=== PATIENT | female | born 2000 | race Caucasian/White ===

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

== ENCOUNTER 2020-12-04 14:33 | Inpatient (IN) ==
[2020-12-04 15:09] LABS: ABG BASE EXCESS 0.8 mmol/L (-2.0-2.0); ABG HCO3 24.2 mmol/L (22-26)
[2020-12-04 15:10] LABS: ABG ALLEN TEST POS
--- NOTE | 2020-12-04 15:48 | DR.SOBA ---
HPI Time Seen Time Seen by Provider: 12/04/20 15:39 Primary Care Physician Primary Care Physician: PAIGE CASANOVA HPI Comment HPI Comment: A 20 y/o female presenting c/o SOB, and hurting in her chest to breath. These have been on going x 1 week. There was associated cough with minimal phlegm production. She was in the ED at [facility] for same 2 days ago where she tested positive for COVID. She was discharged home on Albuterol and Doxycycline. Complaints Chief Complaint:: PT. TESTED POSITIVE FOR COVID 12/02 AND WAS GIVEN A RX. FOR ALBUTEROL AND DOXYCYCLINE. SHE HAS BEEN RUNNING FEVER AND HAS A COUGH BUT COMES IN TODAY C/O SOB AND CHEST HURTING COVID-19 Coronavirus risk:travel/contact w/high risk person: Yes Has patient experienced Coronavirus symptoms: Yes Coronavirus symptoms experienced: Fever, Coughing and Shortness of Breath Reviewed Nurses Notes Reviewed: Yes Source History Provided: Patient Mode of Arrival Mode of Arrival: Ambulatory Timing Onset of Chief Complaint: 12/02/20 Context Onset:: At Rest PE Risk Factors:: None History of:: None Currently on:: Neither Prehospital Care:: None Modifying Factors Worsens:: Exertion Improves:: Rest Associated Signs and Symptoms Associated Signs and Symptoms: Fever and Cough PMH PMH Past Medical History: Yes Past Medical History: Hypertension Past Surgical History: Yes Surgical History: Tonsillectomy Family History History of Family Medical Conditions: Yes Family Medical History: Hypertension Social History Does patient currently use any type of tobacco product: No Have you used tobacco products in the last 12 months: No Type of Tobacco Use: None Does any household member use tobacco: No Alcohol Use: Occasionally Do you use any recreational Drugs:: No Lives With: Friend Lives Where: Home Travel Risk Coronavirus risk:travel/contact w/high risk person: Yes Has patient experienced Coronavirus symptoms: Yes Coronavirus symptoms experienced: Fever, Coughing and Shortness of Breath Infectious screening In the last 2 months have you had wt loss of >10#?: NO Have you had fever, night sweats or hemotysis?: No Have you traveled outside the country in the last 6 months?: No Isolation: Airborn/Negative Pressure ROS Review of Systems Constitutional: No Symptoms Reported Eyes: No Symptoms Reported ENTM: No Symptoms Reported Respiratoy: Productive Cough, Non-Productive Cough, Short of Breath and Other (pleuritic chest pain) Cardiovascular: No Symptoms Reported Gastrointestinal/Abdominal: No Symptoms Reported Genitourinary: No Symptoms Reported Neurological: No Symptoms Reported Musculoskeletal: No Symptoms Reported Integumentary: No Symptoms Reported Hematologic/Lymphatic: No Symptoms Reported Endocrine: No Symptoms Reported Psychiatric: No Symptoms Reported PE Vital Signs Vitals: Temperature 97.7 F Pulse Rate 113 Respiratory Rate 32 Blood Pressure 137/84 O2 Sat by Pulse Oximetry 79 General Limitations: No Limitations General Appearance: Alert, In No Apparent Distress and Obese Head Head Exam: Normal Inspection, Atraumatic and Normocephalic Eyes Eye exam: Normal Appearance and EOMI ENT ENT Exam: Normal Exam, Normal Oropharynx, Normal External Ear Exam and Mucous Membranes Moist Neck Neck Exam: Normal Inspection, Full ROM and Trachea Midline Chest Chest Inspection: Normal Inspection and Symmetric Chest Wall Rise Respiratory Respiratory Exam: Normal Lung Sounds Bilat Cardiovascular Cardiovascular Exam: Regular Rate, Normal Rhythm, Normal Heart Sounds, +S1 and +S2 Abdominal Exam Abdominal Exam: Normal Inspection, Normal Bowel Sounds and Soft Extremities Extremities Exam: Normal Inspection and Full ROM Back Back Exam: Normal Inspection and Full ROM Neurologic Neurological Exam: Alert and Oriented X3 Psychiatric Psychiatric Exam: Normal Affect and Normal Mood Skin Skin Exam: Intact and Normal Color COURSE Reevaluation 1st: Improved Education/Counseling Education/Counseling: Patient, Education and Counseling Educated On: Treatment, Diagnosis, Prognosis and Needs for Follow Up ROR Labs Reviewed Laboratory Results Reviewed?: Yes Result Diagrams: 12/10/20 04:52 12/10/20 04:52 Laboratory: WBC 3.1 X10^3/uL (3.6-10.0) L 12/04/20 16:15 RBC 5.09 X10^6/uL (3.5-5.4) 12/04/20 16:15 Hgb 11.5 g/dL (12.0-16.0) L 12/04/20 16:15 Hct 35.3 % (36.0-47.0) L 12/04/20 16:15 MCV 69.3 fL (80.0-100.0) L 12/04/20 16:15 MCH 22.6 pg (27.0-34.0) L 12/04/20 16:15 MCHC 32.6 g/dL (33.0-35.0) L 12/04/20 16:15 RDW 17.7 % (11.6-16.5) H 12/04/20 16:15 Plt Count 131 X10^3/uL (150.0-450.0) L 12/04/20 16:15 Plt Count Comment Decreased (ADEQUATE) A 12/04/20 16:15 MPV 9.6 fL (7.4-11.0) 12/04/20 16:15 Neut % (Auto) 74.6 % (42.0-75.0) 12/04/20 16:15 Lymph % (Auto) 20.3 % (21.0-51.0) L 12/04/20 16:15 [place] % (Auto) 4.7 % (0.0-13.0) 12/04/20 16:15 Eos % (Auto) 0.0 % (0.9-2.9) L 12/04/20 16:15 Baso % (Auto) 0.4 % (0.2-1.0) 12/04/20 16:15 Neut # (Auto) 2.3 x10^3/uL (2.2-4.8) 12/04/20 16:15 Lymph # (Auto) 0.6 X10^3/uL (1.3-2.9) L 12/04/20 16:15 [place] # (Auto) 0.1 x10^3/uL (0.3-0.8) L 12/04/20 16:15 Eos # (Auto) 0.0 x10^3/uL (0.0-0.2) 12/04/20 16:15 Baso # (Auto) 0.0 X10^3/uL (0.0-0.1) 12/04/20 16:15 Absolute Nucleated RBC 0.1 /100WBC 12/04/20 16:15 Plt Morphology Comment Normal (NORMAL) 12/04/20 16:15 RBC Morphology Abnormal (NORMAL) A 12/04/20 16:15 Microcytosis 1+ A 12/04/20 16:15 D-Dimer 0.68 ug/ml (0.0-0.57) H* 12/04/20 16:15 Sample Site Lr 12/04/20 15:00 ABG pH 7.460 (7.35-7.45) H 12/04/20 15:00 ABG pCO2 34.0 mmHg (35.0-45.0) L 12/04/20 15:00 ABG pO2 54.0 mmHg (80.0-100.0) L 12/04/20 15:00 ABG HCO3 24.2 mmol/L (22-26) 12/04/20 15:00 ABG O2 Saturation 89.0 % (90-100) L 12/04/20 15:00 ABG Base Excess 0.8 mmol/L (-2.0-2.0) 12/04/20 15:00 Jim Test Pos 12/04/20 15:00 A-a Gradient 103.0 mmHg 12/04/20 15:00 FiO2 28.0 12/04/20 15:00 Blood Gas Comments Pt gustavo well cdn 12/04/20 15:00 Sodium 140 mmol/L (136-145) 12/04/20 16:15 Corrected Sodium 142 mmol/L (136-145) 12/04/20 16:15 Potassium 3.4 mmol/L (3.5-5.1) L 12/04/20 16:15 Chloride 104 mmol/L (98-107) 12/04/20 16:15 Carbon Dioxide 26.5 mmol/L (21-32) 12/04/20 16:15 BUN 7 mg/dL (7-18) 12/04/20 16:15 Creatinine 0.70 mg/dL (0.55-1.02) 12/04/20 16:15 Est GFR (MDRD) Af Amer > 60 (>60) 12/04/20 16:15 Est GFR (MDRD) Non-Af > 60 (>60) 12/04/20 16:15 Glucose 168 mg/dL (65-99) H 12/04/20 16:15 Calcium 7.9 mg/dL (8.5-10.1) L 12/04/20 16:15 Corrected Calcium 8.6 mg/dL (8.5-10.1) 12/04/20 16:15 Ferritin 485 ng/mL (8-252) H 12/04/20 16:15 Total Bilirubin 0.50 mg/dL (0.2-1.0) 12/04/20 16:15 AST 118 Units/L (15-37) H 12/04/20 16:15 ALT 157 Units/L (12-78) H 12/04/20 16:15 Alkaline Phosphatase 81 Units/L (46-116) 12/04/20 16:15 C-Reactive Protein 31.10 mg/L (0-3.0) H 12/04/20 16:15 B-Natriuretic Peptide < 5.0 pg/mL (0-79) 12/04/20 16:15 Total Protein 7.1 g/dL (6.4-8.2) 12/04/20 16:15 Albumin 3.1 g/dL (3.4-5.0) L 12/04/20 16:15 Globulin 4.0 g/dL (2.5-4.5) 12/04/20 16:15 Albumin/Globulin Ratio 0.8 Ratio (1.1-2.1) L 12/04/20 16:15 Opioid Opioid Risk Tool Age (Hugo box if 16-45): No History of Preadolescent Sexual Abuse: No Total: 0 Total Score Risk Category: Low Risk Copyright: [facility] predicting aberrant behaviors Diagnosis Discharge Problem: Pneumonia due to 2019-nCoV Instructions Forms: Precautions for COVID19 Patient Portal Social Distancing ADDITIONAL NOTES Additional Notes Additional Notes: [facility] [id number]: [id number] : 2000Sex: FLocation: ER Order Number(s): [id number](s):CHEST, 1 VIEW Ordering Physician: PAULINA WAN Primary Care: Paige Casanova Service Date: 12/04/20 Service Time: 1536 EXAM: CHEST X-RAY HISTORY: COVID-19 positive. Shortness of breath. TECHNIQUE: AP chest x-ray dated December 04, 2020 at 3:42 PM. COMPARISON: None available. FINDINGS: There moderate diffuse bilateral lung infiltrates, especially in the middle and lower lung snider, in keeping with bronchitis and interstitial pneumonia (e.g. Covid pneumonia) in the appropriate clinical setting; DDX includes mild noncardiogenic pulmonary congestion in the appropriate clinical setting. Clinical correlation is advised. No focal lung consolidation/mass, pleural effusion, or pneumothorax is seen. The heart size and mediastinum are within normal limits. The visualized bony structures are within normal limits. IMPRESSION: 1. Moderate diffuse bilateral lung infiltrates, especially in the middle and lower lung snider, in keeping with bronchitis and interstitial pneumonia (e.g. Covid pneumonia) in the appropriate clinical setting; DDX includes mild noncardiogenic pulmonary congestion in the appropriate clinical setting. 2. Recommend clinical correlation and appropriate follow-up x-ray to ensure interval clearance. 3. Consider follow-up evaluation with noncontrast chest CT to confirm Covid pneumonia as clinically warranted. Electronically signed by: Se Fields (Dec 04, 2020 15:59:01) Report Electronically signed: 12/04/20 1600 CC: Paulina Wan
--- NOTE | 2020-12-04 16:00 | RAD ---
EXAM: CHEST X-RAYHISTORY: COVID-19 positive. Shortness of breath.TECHNIQUE: AP chest x-ray dated December 04, 2020 at 3:42 PM.COMPARISON: None available.FINDINGS:There moderate diffuse bilateral lung infiltrates, especially in the middle and lower lung snider, in keeping with bronchitis and interstitial pneumonia (e.g. Covid pneumonia) in the appropriate clinical setting; DDX includes mild noncardiogenic pulmonary congestion in the appropriate clinical setting. Clinical correlation is advised.No focal lung consolidation/mass, pleural effusion, or pneumothorax is seen.The heart size and mediastinum are within normal limits. The visualized bony structures are within normal limits.IMPRESSION:1. Moderate diffuse bilateral lung infiltrates, especially in the middle and lower lung snider, in keeping with bronchitis and interstitial pneumonia (e.g. Covid pneumonia) in the appropriate clinical setting; DDX includes mild noncardiogenic pulmonary congestion in the appropriate clinical setting.2. Recommend clinical correlation and appropriate follow-up x-ray to ensure interval clearance.3. Consider follow-up evaluation with noncontrast chest CT to confirm Covid pneumonia as clinically warranted.Electronically signed by: Se Fields (Dec 04, 2020 15:59:01)
[2020-12-04 16:48] LABS: BASOPHILS % (AUTO) 0.4 % (0.2-1.0); HEMATOCRIT 35.3 % (36.0-47.0); HEMOGLOBIN 11.5 g/dL (12.0-16.0); LYMPHOCYTES # (AUTO) 0.6 X10^3/uL (1.3-2.9); LYMPHOCYTES % (AUTO) 20.3 % (21.0-51.0); MEAN CORPUSCULAR HEMOGLOBIN 22.6 pg (27.0-34.0); MEAN CORPUSCULAR HGB CONC 32.6 g/dL (33.0-35.0); MEAN CORPUSCULAR VOLUME 69.3 fL (80.0-100.0); MEAN PLATELET VOLUME 9.6 fL (7.4-11.0); MONOCYTES # (AUTO) 0.1 x10^3/uL (0.3-0.8); MONOCYTES % (AUTO) 4.7 % (0.0-13.0); NEUTROPHILS # (AUTO) 2.3 x10^3/uL (2.2-4.8); NEUTROPHILS % (AUTO) 74.6 % (42.0-75.0); PLATELET COUNT 131 X10^3/uL (150.0-450.0); RED BLOOD COUNT 5.09 X10^6/uL (3.5-5.4); RED CELL DISTRIBUTION WIDTH 17.7 % (11.6-16.5); WHITE BLOOD COUNT 3.1 X10^3/uL (3.6-10.0)
[2020-12-04 16:59] LABS: ALANINE AMINOTRANSFERASE 157 Units/L (12-78); ALBUMIN 3.1 g/dL (3.4-5.0); ALKALINE PHOSPHATASE 81 Units/L (46-116); ASPARTATE AMINO TRANSFERASE 118 Units/L (15-37); BLOOD UREA NITROGEN 7 mg/dL (7-18); COR NA(FOR HYPERGLY) 142 mmol/L (136-145); SODIUM 140 mmol/L (136-145); TOTAL PROTEIN 7.1 g/dL (6.4-8.2); eGFR NON BLACK RACES > 60 (>60)
[2020-12-04 17:07] LABS: CALCIUM 7.9 mg/dL (8.5-10.1); CARBON DIOXIDE 26.5 mmol/L (21-32); COR CA(FOR HYPOALB) 8.6 mg/dL (8.5-10.1)
[2020-12-04 17:20] LABS: CHLORIDE 104 mmol/L (98-107)
[2020-12-04 17:42] LABS: MICROCYTOSIS 1+; PLATELET MORPHOLOGY COMMENT NORMAL (NORMAL)
[2020-12-04] MEDS ORDERED: SOLU-Medrol 125 MG VIAL IVP SCH (18:00)
[2020-12-04] MEDS ORDERED: TYLENOL 325 MG TAB PO ONE ×2 (18:00→20:23)
[2020-12-04] MEDS ORDERED: NS 100 ML IV 100 ML ONE (18:19)
--- NOTE | 2020-12-04 19:00 | CT ---
CT angiogram chest with contrastIndication: Dyspnea and fever. Cough.TECHNIQUEHelical images through the chest after IV contrast. Coronal and sagittal reformats provided. MIP images provided.COMPARISONChest radiograph from the same day.FINDINGSLimited images through the upper abdomen shows hepatic steatosis. Review of bone windows demonstrate no destructive osseous lesion.Chest: Aortic arch and branch vessels are patent. Heart size is prominent. Pulmonary artery bolus timing is suboptimal without large central pulmonary artery filling defect identified. Chest wall soft tissues show no unexpected abnormality. No mediastinal abnormality is identified.There is no pneumothorax or effusion. Bilateral ground-glass opacity and patchy airspace opacities are seen scattered throughout the lungs, probably worse in the lower lungs, and peripherally located.IMPRESSION1. No pulmonary embolus seen centrally with distal vessels less well evaluated due to motion2. Pulmonary opacities, compatible with moderate COVID-19 viral pneumonitis.3. Hepatic steatosis.Electronically signed by: AMELIA HENDERSON (Dec 04, 2020 18:58:32)
[2020-12-04] MEDS ORDERED: SOLU-Medrol 125 MG VIAL ONE (20:23)
[2020-12-04] MEDS ORDERED: NS 250 ML IV 250 ML IV ONE (20:24)
[2020-12-04] MEDS ORDERED: REMDESIVIR IV ONE (20:24)
[2020-12-04] MEDS: REMDESIVIR 200 MG in NS 100 ML IV 140 ML IV ONE (20:44)
[2020-12-04] MEDS ORDERED: NS 250 ML IV 250 ML IV SCH (21:00)
[2020-12-04] MEDS ORDERED: VISTARIL PO PRN (23:01)
[2020-12-05] MEDS: LOVENOX INJ 40 MG SYR SC SCH ×3 (00:04→21:57)
[2020-12-05] MEDS: NS 1000 ML 1,000 ML IV SCH ×2 (00:04→11:55)
[2020-12-05] MEDS: ROBITUSSIN DM PO SCH ×5 (00:05→21:57)
[2020-12-05] MEDS: ZITHROMAX INJ 500 MG VIAL 500 MG in NS 250 ML IV 250 ML IV SCH ×2 (00:05→23:20)
[2020-12-05 06:10] LABS: BASOPHILS % (AUTO) 0.3 % (0.2-1.0); EOSINOPHILS % (AUTO) 0.2 % (0.9-2.9); HEMATOCRIT 35.5 % (36.0-47.0); HEMOGLOBIN 11.6 g/dL (12.0-16.0); LYMPHOCYTES # (AUTO) 0.4 X10^3/uL (1.3-2.9); LYMPHOCYTES % (AUTO) 19.6 % (21.0-51.0); MEAN CORPUSCULAR HEMOGLOBIN 23.1 pg (27.0-34.0); MEAN CORPUSCULAR HGB CONC 32.6 g/dL (33.0-35.0); MEAN CORPUSCULAR VOLUME 70.9 fL (80.0-100.0); MEAN PLATELET VOLUME 9.9 fL (7.4-11.0); MONOCYTES # (AUTO) 0.1 x10^3/uL (0.3-0.8); MONOCYTES % (AUTO) 2.4 % (0.0-13.0); NEUTROPHILS # (AUTO) 1.6 x10^3/uL (2.2-4.8); NEUTROPHILS % (AUTO) 77.5 % (42.0-75.0); PLATELET COUNT 129 X10^3/uL (150.0-450.0); RED BLOOD COUNT 5.01 X10^6/uL (3.5-5.4); RED CELL DISTRIBUTION WIDTH 17.5 % (11.6-16.5); WHITE BLOOD COUNT 2.1 X10^3/uL (3.6-10.0)
[2020-12-05] MEDS: SOLU-Medrol 40 MG VIAL IVP SCH ×3 (06:27→18:40)
[2020-12-05 06:56] LABS: ALANINE AMINOTRANSFERASE 170 Units/L (12-78); ALBUMIN 2.9 g/dL (3.4-5.0); ALKALINE PHOSPHATASE 100 Units/L (46-116); ASPARTATE AMINO TRANSFERASE 138 Units/L (15-37); BLOOD UREA NITROGEN 8 mg/dL (7-18); CALCIUM 8.1 mg/dL (8.5-10.1); CARBON DIOXIDE 24.7 mmol/L (21-32); CHLORIDE 106 mmol/L (98-107); COR NA(FOR HYPERGLY) 146 mmol/L (136-145); CREATININE 0.88 mg/dL (0.55-1.02); SODIUM 140 mmol/L (136-145); TOTAL PROTEIN 7.2 g/dL (6.4-8.2); eGFR NON BLACK RACES > 60 (>60)
--- NOTE | 2020-12-05 06:57 | RAD ---
HISTORYCOVID-19STUDYPortable AP [id number]/2021FINDINGSThe heart is not significantly enlarged. Extensive bilateral airspace infiltrates are noted, similar in the right lung with interval progression on the left. No pleural fluid or pneumothorax is seen.IMPRESSIONPersistent bilateral pneumonia with significant progression in the left lung since 1 day prior.Electronically signed by: DURGA DICKERSON (Dec 05, 2020 06:55:40)
[2020-12-05 07:48] LABS: BAND NEUTROPHILS % 10 % (0-10); PLATELET MORPHOLOGY COMMENT NORMAL (NORMAL)
[2020-12-05] MEDS: PROTONIX INJ 40 MG VIAL IVP SCH (09:07)
[2020-12-05 10:22] LABS: ABG BASE EXCESS 1.2 mmol/L (-2.0-2.0)
[2020-12-05 10:23] LABS: ABG ALLEN TEST POS
[2020-12-05] MEDS: HumuLIN R SUBCUT PRN ×3 (12:30→21:57)
--- NOTE | 2020-12-05 18:21 | DR.H&P ---
H&P - History & Physical for Day of: H&P Date: 12/04/20 - Chief Complaint Chief Complaint: SOB, CCC - History of Present Illness History of Present Illness: A 20 y/o female presenting c/o SOB, and hurting in her chest to breath. These have been on going x 1 week. There was associated cough with minimal phlegm production. She was in the ED at [facility] for same 2 days ago where she tested positive for COVID. She was discharged home on Albuterol and Doxycycline. - Past Medical History Past Medical History: Hypertension - Past Surgical History Surgical History: [employer] Surgery, Tonsillectomy - Family History Family Medical History: Hypertension - Social History Does patient currently use any type of tobacco product: No Have you used tobacco products in the last 12 months: No Type of Tobacco Use: None Does any household member use tobacco: No Alcohol Use: Occasionally Drug Use: None - Medications Home Medications: No Known Drug Allergies Allergy (Verified 05/19/20 13:34) CONTINUE taking the following medications doxycycline hyclate [Doxy-Caps] 100 mg PO BID 12/04/20 [History] lisinopril 10 mg PO HS 12/04/20 [History] - Review of Systems Constitutional: Fever, Chills, Weakness, Malaise Eyes: No Symptoms Reported ENT: No Symptoms Reported Respiratory: Cough, Shortness of Breath, SOB with Excertion Cardiovascular: No Symptoms Reported Gastrointestinal: No Symptoms Reported Genitourinary: No Symptoms Reported Musculoskeletal: No Symptoms Reported Skin: No Symptoms Reported Neurological: No Symptoms Reported - Physical Exam Vital Signs: Temperature 98.4 F Pulse Rate [Right Brachial] 98 Pulse Rate 96 Respiratory Rate 37 Blood Pressure [Right Arm] 124/73 Blood Pressure 146/79 O2 Sat by Pulse Oximetry 85 Oriented: Normal Eyes: Normal Ear: Normal Nose: Normal Throat: Dry Respiratory: RML Diminished, RLL Diminished, LML Diminished, LLL Diminished Cardiovascular: Normal, Edema : Normal Auscultation: Bowel Sounds: Normal Palpation: Normal Tenderness: Normal Skin: Decreased [place]urgur Musculoskeletal: Normal Psychiatric: Normal Mood Description: Anxious Affect: Anxious Speech Pattern: Clear, Appropriate - Assessment/Plan (1) Pneumonia due to 2019-nCoV Status: Acute Plan: ADMIT, COVID 19 ISOLATION. IV HYDRATION, STRICT I&OS, IV ATBX. IV REMDESIVIR, LOVENOX, SOLU MEDROL. DUO NEBS, SUPPLEMENTAL O2. CTA ON ADMISSION, AM LABS, CARDIAC MONITORING (2) Hypertension Status: Acute - Allergies Allergies/Adverse Reactions: Allergies Allergy/AdvReac Type Severity Reaction Status Date / Time No Known Drug Allergies Allergy Verified 05/19/20 13:34
[2020-12-05] MEDS: VIBRAMYCIN 100 MG in D5W 250 ML IV 250 ML IV SCH ×2 (18:45→21:58)
[2020-12-05] MEDS: PULMICORT NEB TX 0.5 MG NEB SCH (20:55)
[2020-12-05] MEDS: BROVANA IN SCH (20:55)
[2020-12-05] MEDS: SNACK - Diabetic Appropriate PO SCH (21:56)
[2020-12-05] MEDS: REMDESIVIR 100 MG in NS 250 ML IV 250 ML IV SCH (21:56)
[2020-12-06] MEDS: SOLU-Medrol 40 MG VIAL IVP SCH ×4 (01:38→20:43)
[2020-12-06] MEDS: NS 1000 ML 1,000 ML IV SCH ×3 (01:39→21:23)
[2020-12-06 05:23] LABS: ABG ALLEN TEST POS; ABG HCO3 26.5 mmol/L (22-26)
[2020-12-06 05:34] LABS: BASOPHILS % (AUTO) 0.1 % (0.2-1.0); HEMATOCRIT 35.1 % (36.0-47.0); HEMOGLOBIN 11.4 g/dL (12.0-16.0); LYMPHOCYTES # (AUTO) 0.7 X10^3/uL (1.3-2.9); LYMPHOCYTES % (AUTO) 16.7 % (21.0-51.0); MEAN CORPUSCULAR HEMOGLOBIN 23.1 pg (27.0-34.0); MEAN CORPUSCULAR HGB CONC 32.6 g/dL (33.0-35.0); MEAN PLATELET VOLUME 9.1 fL (7.4-11.0); MONOCYTES # (AUTO) 0.2 x10^3/uL (0.3-0.8); MONOCYTES % (AUTO) 4.5 % (0.0-13.0); NEUTROPHILS # (AUTO) 3.2 x10^3/uL (2.2-4.8); NEUTROPHILS % (AUTO) 78.7 % (42.0-75.0); PLATELET COUNT 137 X10^3/uL (150.0-450.0); RED BLOOD COUNT 4.95 X10^6/uL (3.5-5.4); RED CELL DISTRIBUTION WIDTH 17.8 % (11.6-16.5)
[2020-12-06 05:56] LABS: ALANINE AMINOTRANSFERASE 123 Units/L (12-78); ALBUMIN 2.8 g/dL (3.4-5.0); ALKALINE PHOSPHATASE 84 Units/L (46-116); ASPARTATE AMINO TRANSFERASE 67 Units/L (15-37); BLOOD UREA NITROGEN 10 mg/dL (7-18); CALCIUM 8.2 mg/dL (8.5-10.1); CARBON DIOXIDE 25.8 mmol/L (21-32); CHLORIDE 105 mmol/L (98-107); COR CA(FOR HYPOALB) 9.2 mg/dL (8.5-10.1); COR NA(FOR HYPERGLY) 145 mmol/L (136-145); CREATININE 0.82 mg/dL (0.55-1.02); SODIUM 140 mmol/L (136-145); TOTAL PROTEIN 6.8 g/dL (6.4-8.2); eGFR NON BLACK RACES > 60 (>60)
[2020-12-06] MEDS: HumuLIN R SUBCUT PRN ×4 (06:15→20:45)
[2020-12-06 06:30] LABS: HYPOCHROMASIA SLIGHT; MICROCYTOSIS SLIGHT; PLATELET MORPHOLOGY COMMENT NORMAL (NORMAL)
--- NOTE | 2020-12-06 06:59 | RAD ---
HISTORYCOVID-19 pneumoniaSTUDYPortable AP [id number]/26/2021FINDINGSThere is no definite change in appearance of heart or lungs. Heart size remains upper normal with similar distribution of bilateral airspace pulmonary involvement. No developing pleural fluid or pneumothorax seen.IMPRESSIONSimilar appearance of bilateral pneumonia.Electronically signed by: DURGA DICKERSON (Dec 06, 2020 06:57:39)
[2020-12-06] MEDS: VIBRAMYCIN 100 MG in D5W 250 ML IV 250 ML IV SCH ×2 (08:45→21:48)
[2020-12-06] MEDS: LOVENOX INJ 40 MG SYR SC SCH ×2 (08:45→20:44)
[2020-12-06] MEDS: PROTONIX INJ 40 MG VIAL IVP SCH (08:45)
[2020-12-06] MEDS: ROBITUSSIN DM PO SCH ×4 (08:45→20:43)
[2020-12-06] MEDS: PULMICORT NEB TX 0.5 MG NEB SCH ×2 (09:23→21:22)
[2020-12-06] MEDS: BROVANA IN SCH ×2 (09:23→21:22)
[2020-12-06] MEDS ORDERED: TORADOL 15 MG VIAL ONE (16:46)
[2020-12-06] MEDS ORDERED: TYLENOL 325 MG TAB PO ONE ×2 (16:46→18:00)
[2020-12-06] MEDS: TORADOL 15 MG VIAL IVP ONE ×2 (16:50→18:00)
[2020-12-06] MEDS: NYSTATIN POWDER TOP SCH ×2 (18:20→20:44)
[2020-12-06] MEDS: GLUCOPHAGE XR 24-HR PO SCH ×2 (18:20→20:44)
[2020-12-06] MEDS: REMDESIVIR 100 MG in NS 250 ML IV 250 ML IV SCH (20:43)
[2020-12-06] MEDS: SNACK - Diabetic Appropriate PO SCH (21:23)
[2020-12-06] MEDS: ZESTRIL TAB 10 MG PO SCH (23:32)
[2020-12-07] MEDS: ZITHROMAX INJ 500 MG VIAL 500 MG in NS 250 ML IV 250 ML IV SCH ×2 (00:47→23:47)
[2020-12-07] MEDS: SOLU-Medrol 40 MG VIAL IVP SCH ×4 (01:57→21:41)
[2020-12-07] MEDS: NS 1000 ML 1,000 ML IV SCH ×3 (03:07→16:08)
[2020-12-07] MEDS: HumuLIN R SUBCUT PRN ×3 (05:21→21:42)
[2020-12-07 06:17] LABS: BASOPHILS % (AUTO) 0.1 % (0.2-1.0); HEMATOCRIT 34.4 % (36.0-47.0); HEMOGLOBIN 11.1 g/dL (12.0-16.0); LYMPHOCYTES # (AUTO) 0.9 X10^3/uL (1.3-2.9); LYMPHOCYTES % (AUTO) 12.2 % (21.0-51.0); MEAN CORPUSCULAR HEMOGLOBIN 23.5 pg (27.0-34.0); MEAN CORPUSCULAR HGB CONC 32.1 g/dL (33.0-35.0); MEAN PLATELET VOLUME 9.6 fL (7.4-11.0); MONOCYTES # (AUTO) 0.3 x10^3/uL (0.3-0.8); MONOCYTES % (AUTO) 4.1 % (0.0-13.0); NEUTROPHILS # (AUTO) 6.3 x10^3/uL (2.2-4.8); NEUTROPHILS % (AUTO) 83.6 % (42.0-75.0); PLATELET COUNT 164 X10^3/uL (150.0-450.0); RED BLOOD COUNT 4.72 X10^6/uL (3.5-5.4); WHITE BLOOD COUNT 7.6 X10^3/uL (3.6-10.0)
[2020-12-07 06:18] LABS: ALANINE AMINOTRANSFERASE 93 Units/L (12-78); ALBUMIN 2.6 g/dL (3.4-5.0); ALKALINE PHOSPHATASE 80 Units/L (46-116); ASPARTATE AMINO TRANSFERASE 41 Units/L (15-37); BLOOD UREA NITROGEN 16 mg/dL (7-18); CALCIUM 8.3 mg/dL (8.5-10.1); CARBON DIOXIDE 26.6 mmol/L (21-32); CHLORIDE 104 mmol/L (98-107); COR CA(FOR HYPOALB) 9.4 mg/dL (8.5-10.1); COR NA(FOR HYPERGLY) 147 mmol/L (136-145); CREATININE 0.87 mg/dL (0.55-1.02); SODIUM 141 mmol/L (136-145); TOTAL PROTEIN 6.4 g/dL (6.4-8.2); eGFR NON BLACK RACES > 60 (>60)
[2020-12-07 06:26] LABS: ABG HCO3 27.1 mmol/L (22-26)
[2020-12-07 06:27] LABS: ABG ALLEN TEST POS
[2020-12-07 08:06] LABS: ANISOCYTOSIS SLIGHT; HYPOCHROMASIA SLIGHT; MICROCYTOSIS SLIGHT; PLATELET MORPHOLOGY COMMENT NORMAL (NORMAL)
[2020-12-07] MEDS: PROTONIX INJ 40 MG VIAL IVP SCH (08:55)
[2020-12-07] MEDS: LOVENOX INJ 40 MG SYR SC SCH ×2 (08:55→22:01)
[2020-12-07] MEDS: ROBITUSSIN DM PO SCH ×4 (08:55→21:41)
[2020-12-07] MEDS: VIBRAMYCIN 100 MG in D5W 250 ML IV 250 ML IV SCH ×2 (08:55→22:49)
[2020-12-07] MEDS: GLUCOPHAGE XR 24-HR PO SCH ×2 (08:56→21:42)
[2020-12-07] MEDS: NYSTATIN POWDER TOP SCH ×2 (08:56→21:42)
--- NOTE | 2020-12-07 09:00 | RAD ---
HISTORYSOBSTUDYPortable AP [id number]/2021FINDINGSMild cardiomegaly noted with no significant change in extent or distribution in extensive bilateral airspace consolidation. There are no new areas of involvement identified. No definite pleural fluid or pneumothorax seen.IMPRESSIONNo significant change in appearance of the bilateral pneumonia.Electronically signed by: DURGA DICKERSON (Dec 07, 2020 08:57:44)
[2020-12-07] MEDS: PULMICORT NEB TX 0.5 MG NEB SCH ×2 (09:40→21:51)
[2020-12-07] MEDS: BROVANA IN SCH ×2 (09:40→21:51)
--- NOTE | 2020-12-07 14:05 | PCM.PROG ---
Progress Note - Progress Note for Day of Date of Exam: 12/07/20 - Subjective Subjective: The patient is a 20-year-old white female, patient of , who is being treated for COVID-19 pneumonia with hypoxia. She is on IV antibiotics, respiratory therapy, and supplemental oxygen at 100% FIO2. She has been on heated high flow since yesterday. Her saturations have been 85-92% this morning and throughout the night. The nursing staff reports that she has significant drops in saturations upon ambulating. Today, she is sitting up in bed on morning rounds. Eyes are closed, but she opens and responds to verbal stimuli. She continues with shortness of breath, weakness, and non-productive cough. On exam, She is in mild respiratory distress at rest. She has diffuse diminished lung sounds throughout. Heart rate was not tachycardiac this morning and was a regular rate and rhythm. The patients abdomen was obese but nontender. Bowel sounds are present times all four quadrants. She has trace bilateral lower extremity edema noted. The patient is calm and cooperative at this time. Her vitals this morning are: 98.6-76-24-86%-141/86. Labs were obtained. Abnormal lab values include the following: HGB 11.1, HCT 34.4, GLUCOSE 343, CALCIUM 8.3, AST 41, ALT 93, CRP 4.20, BNP 108, ALBUMIN 2.6. A chest xray was obtained and revealed: Mild cardiomegaly noted with no significant change in extent or distribution in extensive bilateral airspace consolidation. There are no new areas of involvement identified. No definite pleural fluid or pneumothorax seen. We will continue with IV antibiotics, steroids, respiratory therapy, supplemental oxygen, and Remdesivir. RT as well as PT. Repeat AM labs, chest xray, ABG. Continue anti-coagulant prophylaxis. TIME SPENT ON CLINICAL ASSESSMENT, REVIEWING LABS AND IMAGING, DECISION MAKING, AND DOCUMENTATION GREATER THAN 45 MINUTES. - Past Medical Family Social History Past Med/Fam/Surg Hx: No changes since H&P Allergies: Allergies No Known Drug Allergies Allergy (Verified 05/19/20 13:34) - Review of Systems ROS: No change since H&P - Vital Signs and I&O's Vital Signs: Temperature 98.6 F Pulse Rate [Right Brachial] 98 Pulse Rate 76 Respiratory Rate 44 Blood Pressure [Right Arm] 124/73 Blood Pressure 141/86 O2 Sat by Pulse Oximetry 86 Intake and Output: Intake & Output 12/05/20 12/06/20 12/07/20 12/08/20 11:59 11:59 11:59 11:59 Intake Total 1 / 1 3950 / 3950 3063 / 3063 Balance / 1 3950 / 3950 3063 / 3063 - Physical Exam Oriented: Normal Eyes: Normal Ear: Normal Nose: Normal Throat: Dry Respiratory: Generalized, Diminished Cardiovascular: Normal, Edema : Normal Auscultation: Bowel Sounds: Normal Palpation: Normal Tenderness: Normal Skin: Decreased Turgur Musculoskeletal: Normal Psychiatric: Normal Mood Description: Anxious Affect: Anxious Speech Pattern: Clear, Appropriate - Laboratory and Diagnostics Result Diagrams: 12/07/20 04:55 12/07/20 04:55 Labs: Laboratory WBC 7.6 X10^3/uL (3.6-10.0) 12/07/20 04:55 RBC 4.72 X10^6/uL (3.5-5.4) 12/07/20 04:55 Hgb 11.1 g/dL (12.0-16.0) L 12/07/20 04:55 Hct 34.4 % (36.0-47.0) L 12/07/20 04:55 MCV 73.0 fL (80.0-100.0) L 12/07/20 04:55 MCH 23.5 pg (27.0-34.0) L 12/07/20 04:55 MCHC 32.1 g/dL (33.0-35.0) L 12/07/20 04:55 RDW 18.0 % (11.6-16.5) H 12/07/20 04:55 Plt Count 164 X10^3/uL (150.0-450.0) 12/07/20 04:55 Plt Count Comment Adequate (ADEQUATE) 12/07/20 04:55 MPV 9.6 fL (7.4-11.0) 12/07/20 04:55 Neut % (Auto) 83.6 % (42.0-75.0) H 12/07/20 04:55 Lymph % (Auto) 12.2 % (21.0-51.0) L 12/07/20 04:55 [place] % (Auto) 4.1 % (0.0-13.0) 12/07/20 04:55 Eos % (Auto) 0.0 % (0.9-2.9) L 12/07/20 04:55 Baso % (Auto) 0.1 % (0.2-1.0) L 12/07/20 04:55 Neut # (Auto) 6.3 x10^3/uL (2.2-4.8) H 12/07/20 04:55 Lymph # (Auto) 0.9 X10^3/uL (1.3-2.9) L 12/07/20 04:55 [place] # (Auto) 0.3 x10^3/uL (0.3-0.8) 12/07/20 04:55 Eos # (Auto) 0.0 x10^3/uL (0.0-0.2) 12/07/20 04:55 Baso # (Auto) 0.0 X10^3/uL (0.0-0.1) 12/07/20 04:55 Absolute Nucleated RBC 0.1 /100WBC 12/07/20 04:55 Total Counted 100 12/05/20 04:20 Neutrophils % (Manual) 64 % (39-76) 12/05/20 04:20 Band Neutrophils % 10 % (0-10) 12/05/20 04:20 Lymphocytes % (Manual) 24 % (13-43) 12/05/20 04:20 Monocytes % (Manual) 2 % (4-9) L 12/05/20 04:20 Plt Morphology Comment Normal (NORMAL) 12/07/20 04:55 RBC Morphology Abnormal (NORMAL) A 12/07/20 04:55 Hypochromasia Slight A 12/07/20 04:55 Anisocytosis Slight A 12/07/20 04:55 Microcytosis Slight A 12/07/20 04:55 D-Dimer 0.48 ug/ml (0.0-0.57) 12/06/20 04:30 Sample Site Rrad 12/07/20 06:18 ABG pH 7.450 (7.35-7.45) 12/07/20 06:18 ABG pCO2 39.0 mmHg (35.0-45.0) 12/07/20 06:18 ABG pO2 47.0 mmHg (80.0-100.0) L* 12/07/20 06:18 ABG HCO3 27.1 mmol/L (22-26) H 12/07/20 06:18 ABG O2 Saturation 85.0 % (90-100) L 12/07/20 06:18 ABG Base Excess 3.0 mmol/L (-2.0-2.0) H 12/07/20 06:18 Jim Test Pos 12/07/20 06:18 A-a Gradient 574.0 mmHg 12/07/20 06:18 FiO2 94.0 12/07/20 06:18 Blood Gas Comments Marquita abg well-mtf 12/07/20 06:18 Sodium 141 mmol/L (136-145) 12/07/20 04:55 Corrected Sodium 147 mmol/L (136-145) H 12/07/20 04:55 Potassium 3.7 mmol/L (3.5-5.1) 12/07/20 04:55 Chloride 104 mmol/L (98-107) 12/07/20 04:55 Carbon Dioxide 26.6 mmol/L (21-32) 12/07/20 04:55 BUN 16 mg/dL (7-18) 12/07/20 04:55 Creatinine 0.87 mg/dL (0.55-1.02) 12/07/20 04:55 Est GFR (MDRD) Af Amer > 60 (>60) 12/07/20 04:55 Est GFR (MDRD) Non-Af > 60 (>60) 12/07/20 04:55 Glucose 343 mg/dL (65-99) H 12/07/20 04:55 POC Glucose (mg/dL) 316 mg/dL (65-99) H 12/07/20 04:50 Hemoglobin A1c 7.1 % 12/05/20 10:41 Calcium 8.3 mg/dL (8.5-10.1) L 12/07/20 04:55 Corrected Calcium 9.4 mg/dL (8.5-10.1) 12/07/20 04:55 Ferritin 485 ng/mL (8-252) H 12/04/20 16:15 Total Bilirubin 0.30 mg/dL (0.2-1.0) 12/07/20 04:55 AST 41 Units/L (15-37) H 12/07/20 04:55 ALT 93 Units/L (12-78) H 12/07/20 04:55 Alkaline Phosphatase 80 Units/L (46-116) 12/07/20 04:55 C-Reactive Protein 4.20 mg/L (0-3.0) H 12/07/20 04:55 B-Natriuretic Peptide 108 pg/mL (0-79) H 12/07/20 04:55 Total Protein 6.4 g/dL (6.4-8.2) 12/07/20 04:55 Albumin 2.6 g/dL (3.4-5.0) L 12/07/20 04:55 Globulin 3.8 g/dL (2.5-4.5) 12/07/20 04:55 Albumin/Globulin Ratio 0.7 Ratio (1.1-2.1) L 12/07/20 04:55 SARS-CoV-2 (PCR) Positive (NEGATIVE) A 12/04/20 21:06 Influenza Type A (PCR) Negative (NEGATIVE) 12/04/20 21:06 Influenza Type B (PCR) Negative (NEGATIVE) 12/04/20 21:06 RSV (PCR) Negative (NEGATIVE) 12/04/20 21:06 - Plan (1) Pneumonia due to 2019-nCoV Status: Acute Plan: COVID 19 ISOLATION. IV HYDRATION, STRICT I&OS, IV ATBX. IV REMDESIVIR, LOVENOX, SOLU MEDROL. DUO NEBS, SUPPLEMENTAL O2. AM LABS, CHEST XRAY, CARDIAC MONITORING (2) Hypoxia Status: Acute (3) Hypertension Status: Chronic Qualifiers: Hypertension type: primary hypertension Qualified Code(s): I10 - Essential (primary) hypertension
[2020-12-07] MEDS: SNACK - Diabetic Appropriate PO SCH (21:41)
[2020-12-07] MEDS: ZESTRIL TAB 10 MG PO SCH (21:41)
[2020-12-07] MEDS: FLONASE NASAL SPRAY ENOSTRIL SCH (22:17)
[2020-12-07] MEDS: REMDESIVIR 100 MG in NS 250 ML IV 250 ML IV SCH (22:49)
[2020-12-08] MEDS: VIBRAMYCIN 100 MG in D5W 250 ML IV 250 ML IV SCH ×2 (01:00→08:17)
[2020-12-08] MEDS: SOLU-Medrol 40 MG VIAL IVP SCH ×4 (01:36→23:00)
[2020-12-08] MEDS: NS 1000 ML 1,000 ML IV SCH ×2 (05:41→18:52)
[2020-12-08] MEDS: HumuLIN R SUBCUT PRN ×4 (05:41→21:00)
[2020-12-08 05:46] LABS: BASOPHILS % (AUTO) 0.1 % (0.2-1.0); EOSINOPHILS % (AUTO) 0.1 % (0.9-2.9); HEMATOCRIT 33.1 % (36.0-47.0); HEMOGLOBIN 10.8 g/dL (12.0-16.0); LYMPHOCYTES # (AUTO) 0.8 X10^3/uL (1.3-2.9); LYMPHOCYTES % (AUTO) 10.6 % (21.0-51.0); MEAN CORPUSCULAR HEMOGLOBIN 23.3 pg (27.0-34.0); MEAN CORPUSCULAR HGB CONC 32.7 g/dL (33.0-35.0); MEAN CORPUSCULAR VOLUME 71.4 fL (80.0-100.0); MEAN PLATELET VOLUME 9.6 fL (7.4-11.0); MONOCYTES # (AUTO) 0.3 x10^3/uL (0.3-0.8); MONOCYTES % (AUTO) 4.5 % (0.0-13.0); NEUTROPHILS % (AUTO) 84.7 % (42.0-75.0); PLATELET COUNT 160 X10^3/uL (150.0-450.0); RED BLOOD COUNT 4.64 X10^6/uL (3.5-5.4); RED CELL DISTRIBUTION WIDTH 17.8 % (11.6-16.5); WHITE BLOOD COUNT 7.1 X10^3/uL (3.6-10.0)
[2020-12-08 06:03] LABS: ABG ALLEN TEST POS; ABG BASE EXCESS 4.3 mmol/L (-2.0-2.0); ABG HCO3 26.5 mmol/L (22-26)
[2020-12-08 06:09] LABS: ALANINE AMINOTRANSFERASE 95 Units/L (12-78); ALBUMIN 2.6 g/dL (3.4-5.0); ALKALINE PHOSPHATASE 80 Units/L (46-116); ASPARTATE AMINO TRANSFERASE 55 Units/L (15-37); BLOOD UREA NITROGEN 17 mg/dL (7-18); CARBON DIOXIDE 27.2 mmol/L (21-32); CHLORIDE 106 mmol/L (98-107); COR CA(FOR HYPOALB) 9.1 mg/dL (8.5-10.1); COR NA(FOR HYPERGLY) 146 mmol/L (136-145); CREATININE 0.79 mg/dL (0.55-1.02); SODIUM 141 mmol/L (136-145); TOTAL PROTEIN 6.3 g/dL (6.4-8.2); eGFR NON BLACK RACES > 60 (>60)
--- NOTE | 2020-12-08 06:55 | RAD ---
HISTORYCOVID-19 pneumoniaSTUDYPortable AP [id number]/28/2021FINDINGSStable cardiomegaly with similar degree and distribution of extensive bilateral airspace consolidation. No pleural fluid or pneumothorax identified.IMPRESSIONThere is no significant change in appearance of the bilateral pneumonia.Electronically signed by: DURGA DICKERSON (Dec 08, 2020 06:53:49)
[2020-12-08] MEDS: FLONASE NASAL SPRAY ENOSTRIL SCH (08:14)
[2020-12-08] MEDS: GLUCOPHAGE XR 24-HR PO SCH ×2 (08:15→21:00)
[2020-12-08] MEDS: ROBITUSSIN DM PO SCH ×4 (08:16→21:00)
[2020-12-08] MEDS: PROTONIX INJ 40 MG VIAL IVP SCH (08:16)
[2020-12-08] MEDS: LOVENOX INJ 40 MG SYR SC SCH ×2 (08:23→21:00)
[2020-12-08] MEDS: NYSTATIN POWDER TOP SCH ×2 (08:29→21:00)
[2020-12-08] MEDS: PULMICORT NEB TX 0.5 MG NEB SCH ×2 (09:05→20:10)
[2020-12-08] MEDS: BROVANA IN SCH ×2 (09:05→20:10)
[2020-12-08 09:23] LABS: ANISOCYTOSIS 1+; HYPOCHROMASIA SLIGHT; MICROCYTOSIS SLIGHT; PLATELET MORPHOLOGY COMMENT NORMAL (NORMAL)
[2020-12-08] MEDS: SNACK - Diabetic Appropriate PO SCH (20:00)
[2020-12-08] MEDS: TYLENOL 325 MG TAB PO PRN (21:00)
[2020-12-08] MEDS: ZESTRIL TAB 10 MG PO SCH (21:00)
[2020-12-08] MEDS: ZITHROMAX INJ 500 MG VIAL 500 MG in NS 250 ML IV 250 ML IV SCH (23:00)
--- NOTE | 2020-12-08 23:36 | PCM.PROG ---
Progress Note - Progress Note for Day of Date of Exam: 12/08/20 - Subjective Subjective: The patient is a 20-year-old white female, patient of , who is being treated for COVID-19 pneumonia with hypoxia. She is on IV antibiotics, respiratory therapy, and supplemental oxygen at 100% FIO2. She has been on heated high flow. Her saturations have been 85-93% this morning and throughout the night. The nursing staff reports that she has significant drops in saturations upon ambulating. Today, she is sitting up in bed on morning rounds. Eyes are closed, but she opens and responds to verbal stimuli. She continues with shortness of breath, weakness, and non-productive cough. On exam, She is in mild respiratory distress at rest. She has diffuse diminished lung sounds throughout. Heart rate was not tachycardiac this morning and was a regular rate and rhythm. The patients abdomen was obese but nontender. Bowel sounds are present times all four quadrants. She has trace bilateral lower extremity edema noted. The patient is calm and cooperative at this time. Her vitals this morning are: 97.5-69-18-93%-131/73. Labs were obtained. Abnormal lab values include the following: HGB 10.8, HCT 33.1, D-DIMER 0.80, GLUCOSE 301, CALCIUM 8.0, AST 55, ALT 95, BNP 83.70, TOTAL PROTEIN 6.3, ALBUMIN 2.6. ABG REVEALED: PH 7.540, PC02 31, P02 100, HC03 26.5, 02 SAT 98, BASE EXCESS 4.3, A-A GRADIENT 574, FI02 100. A chest xray was obtained and revealed: There is no significant change in appearance of the bilateral pneumonia. We will continue with IV antibiotics, steroids, respiratory therapy, supplemental oxygen, and Remdesivir. RT as well as PT. Repeat AM labs, chest xray, ABG. Continue anti- coagulant prophylaxis. TIME SPENT ON CLINICAL ASSESSMENT, REVIEWING LABS AND IMAGING, DECISION MAKING, AND DOCUMENTATION GREATER THAN 45 MINUTES. - Past Medical Family Social History Past Med/Fam/Surg Hx: No changes since H&P Allergies: Allergies No Known Drug Allergies Allergy (Verified 05/19/20 13:34) - Review of Systems ROS: No change since H&P - Vital Signs and I&O's Vital Signs: Temperature 97.8 F Pulse Rate [Right Brachial] 98 Pulse Rate 69 Respiratory Rate 20 Blood Pressure [Right Arm] 124/73 Blood Pressure 128/60 O2 Sat by Pulse Oximetry 96 Intake and Output: Intake & Output 12/06/20 12/07/20 12/08/20 12/09/20 11:59 11:59 11:59 11:59 Intake Total 3950 / 3950 3063 / 3063 3079 / 3079 944 / 944 Output Total 600 / 600 Balance 3950 / 3950 3063 / 3063 3079 / 3079 344 / 344 - Physical Exam Oriented: Normal Eyes: Normal Ear: Normal Nose: Normal Throat: Dry Respiratory: Generalized, Diminished Cardiovascular: Normal, Edema : Normal Auscultation: Bowel Sounds: Normal Palpation: Normal Tenderness: Normal Skin: Decreased Turgur Musculoskeletal: Normal Psychiatric: Normal Mood Description: Anxious Affect: Anxious Speech Pattern: Clear, Appropriate - Laboratory and Diagnostics Result Diagrams: 12/08/20 04:51 12/08/20 04:51 Labs: Laboratory WBC 7.1 X10^3/uL (3.6-10.0) 12/08/20 04:51 RBC 4.64 X10^6/uL (3.5-5.4) 12/08/20 04:51 Hgb 10.8 g/dL (12.0-16.0) L 12/08/20 04:51 Hct 33.1 % (36.0-47.0) L 12/08/20 04:51 MCV 71.4 fL (80.0-100.0) L 12/08/20 04:51 MCH 23.3 pg (27.0-34.0) L 12/08/20 04:51 MCHC 32.7 g/dL (33.0-35.0) L 12/08/20 04:51 RDW 17.8 % (11.6-16.5) H 12/08/20 04:51 Plt Count 160 X10^3/uL (150.0-450.0) 12/08/20 04:51 Plt Count Comment Adequate (ADEQUATE) 12/08/20 04:51 MPV 9.6 fL (7.4-11.0) 12/08/20 04:51 Neut % (Auto) 84.7 % (42.0-75.0) H 12/08/20 04:51 Lymph % (Auto) 10.6 % (21.0-51.0) L 12/08/20 04:51 [place] % (Auto) 4.5 % (0.0-13.0) 12/08/20 04:51 Eos % (Auto) 0.1 % (0.9-2.9) L 12/08/20 04:51 Baso % (Auto) 0.1 % (0.2-1.0) L 12/08/20 04:51 Neut # (Auto) 6.0 x10^3/uL (2.2-4.8) H 12/08/20 04:51 Lymph # (Auto) 0.8 X10^3/uL (1.3-2.9) L 12/08/20 04:51 [place] # (Auto) 0.3 x10^3/uL (0.3-0.8) 12/08/20 04:51 Eos # (Auto) 0.0 x10^3/uL (0.0-0.2) 12/08/20 04:51 Baso # (Auto) 0.0 X10^3/uL (0.0-0.1) 12/08/20 04:51 Absolute Nucleated RBC 0.0 /100WBC 12/08/20 04:51 Total Counted 100 12/05/20 04:20 Neutrophils % (Manual) 64 % (39-76) 12/05/20 04:20 Band Neutrophils % 10 % (0-10) 12/05/20 04:20 Lymphocytes % (Manual) 24 % (13-43) 12/05/20 04:20 Monocytes % (Manual) 2 % (4-9) L 12/05/20 04:20 Plt Morphology Comment Normal (NORMAL) 12/08/20 04:51 RBC Morphology Abnormal (NORMAL) A 12/08/20 04:51 Hypochromasia Slight A 12/08/20 04:51 Anisocytosis 1+ A 12/08/20 04:51 Microcytosis Slight A 12/08/20 04:51 D-Dimer 0.80 ug/ml (0.0-0.57) H* 12/08/20 04:51 Sample Site Rrad 12/08/20 06:02 ABG pH 7.540 (7.35-7.45) H 12/08/20 06:02 ABG pCO2 31.0 mmHg (35.0-45.0) L 12/08/20 06:02 ABG pO2 100.0 mmHg (80.0-100.0) 12/08/20 06:02 ABG HCO3 26.5 mmol/L (22-26) H 12/08/20 06:02 ABG O2 Saturation 98.0 % (90-100) 12/08/20 06:02 ABG Base Excess 4.3 mmol/L (-2.0-2.0) H 12/08/20 06:02 Jim Test Pos 12/08/20 06:02 A-a Gradient 574.0 mmHg 12/08/20 06:02 FiO2 100.0 12/08/20 06:02 Blood Gas Comments Marquita abg well-mtf 12/08/20 06:02 Sodium 141 mmol/L (136-145) 12/08/20 04:51 Corrected Sodium 146 mmol/L (136-145) H 12/08/20 04:51 Potassium 3.8 mmol/L (3.5-5.1) 12/08/20 04:51 Chloride 106 mmol/L (98-107) 12/08/20 04:51 Carbon Dioxide 27.2 mmol/L (21-32) 12/08/20 04:51 BUN 17 mg/dL (7-18) 12/08/20 04:51 Creatinine 0.79 mg/dL (0.55-1.02) 12/08/20 04:51 Est GFR (MDRD) Af Amer > 60 (>60) 12/08/20 04:51 Est GFR (MDRD) Non-Af > 60 (>60) 12/08/20 04:51 Glucose 301 mg/dL (65-99) H 12/08/20 04:51 POC Glucose (mg/dL) 329 mg/dL (65-99) H 12/08/20 20:04 Hemoglobin A1c 7.1 % 12/05/20 10:41 Calcium 8.0 mg/dL (8.5-10.1) L 12/08/20 04:51 Corrected Calcium 9.1 mg/dL (8.5-10.1) 12/08/20 04:51 Ferritin 485 ng/mL (8-252) H 12/04/20 16:15 Total Bilirubin 0.40 mg/dL (0.2-1.0) 12/08/20 04:51 AST 55 Units/L (15-37) H 12/08/20 04:51 ALT 95 Units/L (12-78) H 12/08/20 04:51 Alkaline Phosphatase 80 Units/L (46-116) 12/08/20 04:51 C-Reactive Protein 2.10 mg/L (0-3.0) 12/08/20 04:51 B-Natriuretic Peptide 83.7 pg/mL (0-79) H 12/08/20 04:51 Total Protein 6.3 g/dL (6.4-8.2) L 12/08/20 04:51 Albumin 2.6 g/dL (3.4-5.0) L 12/08/20 04:51 Globulin 3.7 g/dL (2.5-4.5) 12/08/20 04:51 Albumin/Globulin Ratio 0.7 Ratio (1.1-2.1) L 12/08/20 04:51 SARS-CoV-2 (PCR) Positive (NEGATIVE) A 12/04/20 21:06 Influenza Type A (PCR) Negative (NEGATIVE) 12/04/20 21:06 Influenza Type B (PCR) Negative (NEGATIVE) 12/04/20 21:06 RSV (PCR) Negative (NEGATIVE) 12/04/20 21:06 - Plan (1) Pneumonia due to 2019-nCoV Status: Acute Plan: COVID 19 ISOLATION. IV HYDRATION, STRICT I&OS, IV ATBX. IV REMDESIVIR, LOVENOX, SOLU MEDROL. DUO NEBS, SUPPLEMENTAL O2. AM LABS, CHEST XRAY, CARDIAC MONITORING (2) Hypoxia Status: Acute (3) Hypertension Status: Chronic Qualifiers: Hypertension type: primary hypertension Qualified Code(s): I10 - Essential (primary) hypertension
[2020-12-09] MEDS: SOLU-Medrol 40 MG VIAL IVP SCH ×2 (03:19→06:43)
[2020-12-09 05:20] LABS: ABG ALLEN TEST POS; ABG BASE EXCESS 3.5 mmol/L (-2.0-2.0); ABG HCO3 26.7 mmol/L (22-26)
[2020-12-09] MEDS: REMDESIVIR 100 MG in NS 250 ML IV 250 ML IV SCH (06:01)
[2020-12-09 06:20] LABS: ALANINE AMINOTRANSFERASE 134 Units/L (12-78); ALBUMIN 2.7 g/dL (3.4-5.0); ALKALINE PHOSPHATASE 73 Units/L (46-116); BLOOD UREA NITROGEN 19 mg/dL (7-18); CALCIUM 8.1 mg/dL (8.5-10.1); CARBON DIOXIDE 26.7 mmol/L (21-32); CHLORIDE 106 mmol/L (98-107); COR CA(FOR HYPOALB) 9.1 mg/dL (8.5-10.1); COR NA(FOR HYPERGLY) 144 mmol/L (136-145); CREATININE 0.77 mg/dL (0.55-1.02); SODIUM 140 mmol/L (136-145); TOTAL PROTEIN 6.2 g/dL (6.4-8.2); eGFR NON BLACK RACES > 60 (>60)
[2020-12-09 06:30] LABS: ASPARTATE AMINO TRANSFERASE 84 Units/L (15-37)
[2020-12-09] MEDS: HumuLIN R SUBCUT PRN ×4 (06:43→21:00)
[2020-12-09 07:29] LABS: BASOPHILS % (AUTO) 0.2 % (0.2-1.0); EOSINOPHILS % (AUTO) 0.1 % (0.9-2.9); HEMATOCRIT 31.6 % (36.0-47.0); HEMOGLOBIN 10.7 g/dL (12.0-16.0); LYMPHOCYTES # (AUTO) 0.7 X10^3/uL (1.3-2.9); LYMPHOCYTES % (AUTO) 14.2 % (21.0-51.0); MEAN CORPUSCULAR HGB CONC 33.7 g/dL (33.0-35.0); MEAN CORPUSCULAR VOLUME 74.1 fL (80.0-100.0); MEAN PLATELET VOLUME 9.7 fL (7.4-11.0); MONOCYTES # (AUTO) 0.3 x10^3/uL (0.3-0.8); MONOCYTES % (AUTO) 5.2 % (0.0-13.0); NEUTROPHILS # (AUTO) 4.1 x10^3/uL (2.2-4.8); NEUTROPHILS % (AUTO) 80.3 % (42.0-75.0); PLATELET COUNT 153 X10^3/uL (150.0-450.0); RED BLOOD COUNT 4.26 X10^6/uL (3.5-5.4); RED CELL DISTRIBUTION WIDTH 17.8 % (11.6-16.5); WHITE BLOOD COUNT 5.1 X10^3/uL (3.6-10.0)
[2020-12-09] MEDS: NS 1000 ML 1,000 ML IV SCH ×2 (07:46→23:59)
[2020-12-09] MEDS: NYSTATIN POWDER TOP SCH ×2 (08:07→21:00)
[2020-12-09] MEDS: GLUCOPHAGE XR 24-HR PO SCH ×2 (08:07→21:00)
[2020-12-09] MEDS: PROTONIX INJ 40 MG VIAL IVP SCH (08:07)
[2020-12-09] MEDS: FLONASE NASAL SPRAY ENOSTRIL SCH (08:07)
[2020-12-09] MEDS: LOVENOX INJ 40 MG SYR SC SCH ×2 (08:07→21:00)
[2020-12-09] MEDS: ROBITUSSIN DM PO SCH ×4 (08:08→21:00)
[2020-12-09] MEDS: VIBRAMYCIN 100 MG in D5W 250 ML IV 250 ML IV SCH ×2 (08:08→21:00)
[2020-12-09 08:11] LABS: HYPOCHROMASIA SLIGHT; PLATELET MORPHOLOGY COMMENT NORMAL (NORMAL)
--- NOTE | 2020-12-09 08:14 | RAD ---
HISTORYSOBSTUDYCHEST x-ray, 1 VIEWCOMPARISONX-ray 12/30/2020FINDINGSProminent bilateral lung infiltrates are similar to prior study. Possible CHF, unchanged. No pneumothorax or pleural effusion is seen.IMPRESSIONAppearance of the chest is unchanged.Electronically signed by: Haider Land (Dec 09, 2020 08:12:41)
[2020-12-09] MEDS: PULMICORT NEB TX 0.5 MG NEB SCH ×2 (08:40→21:56)
[2020-12-09] MEDS: BROVANA IN SCH ×2 (08:40→21:56)
[2020-12-09] MEDS: TYLENOL 325 MG TAB PO PRN (09:34)
--- NOTE | 2020-12-09 14:01 | RAD ---
HISTORYCENTRAL LINE PLACEMENT Relevant Clinical InformationSTUDYCHEST, 1 [id number]/30/2021FINDINGSTrachea is midline. There is a new right IJ catheter with the tip in the SVC. There is no evidence of pneumothorax. Stable mild cardiomegaly. There is again seen patchy confluent ground-glass radiopacities, there has been interval improvement in the right midlung zone as well as in the left base.IMPRESSIONNew right IJ catheter with the tip in the SVC, no pneumothoraxPatchy alveolar and ground-glass radiopacities with interval improvement of in the right midlung zone and in the left lower lobe.Electronically signed by: Tangela Palomares (Dec 09, 2020 13:59:43)
--- NOTE | 2020-12-09 14:38 | DR.UPDATE ---
H&P Update History and Physical Update: History and Physical reviewed and patient examined. Changes noted: NO Yes with the following:will place central line H&P Reviewed: Yes Patient was examined?: Yes Procedures (ALL) - Central Line Placement PCM.CLCO: written consent Time out performed: Yes Patient placed pm monitor/pulse ox: Yes MD prep: mask, gown, gloves, other Centrial line prep: chlorhexidine scrub Local anesthsia used: lidocane 1% Ultrasound used for placement: Yes (right ij id'd via u/s and cannulation visualized) Central line lumen ininserted: triple Post procedure: sutured in place, good blood return, all ports aspirated, flushed,capped, sterile dressing applied Post procedure xray: tip oc catheter in good position (svc), no pneumothorax seen Patient tolerated procedure: Yes Complications: none
[2020-12-09] MEDS: SOLU-Medrol 125 MG VIAL IVP SCH ×2 (14:50→21:00)
[2020-12-09] MEDS: SNACK - Diabetic Appropriate PO SCH (20:00)
[2020-12-09] MEDS: ZESTRIL TAB 10 MG PO SCH (21:00)
[2020-12-09] MEDS: ZITHROMAX INJ 500 MG VIAL 500 MG in NS 250 ML IV 250 ML IV SCH (23:00)
[2020-12-10] MEDS: SOLU-Medrol 125 MG VIAL IVP SCH ×4 (04:30→21:00)
[2020-12-10 05:56] LABS: BASOPHILS % (AUTO) 0.1 % (0.2-1.0); HEMATOCRIT 30.7 % (36.0-47.0); HEMOGLOBIN 10.1 g/dL (12.0-16.0); LYMPHOCYTES # (AUTO) 0.7 X10^3/uL (1.3-2.9); LYMPHOCYTES % (AUTO) 12.1 % (21.0-51.0); MEAN CORPUSCULAR HEMOGLOBIN 24.6 pg (27.0-34.0); MEAN CORPUSCULAR VOLUME 74.8 fL (80.0-100.0); MEAN PLATELET VOLUME 9.8 fL (7.4-11.0); MONOCYTES # (AUTO) 0.5 x10^3/uL (0.3-0.8); MONOCYTES % (AUTO) 7.6 % (0.0-13.0); NEUTROPHILS # (AUTO) 4.9 x10^3/uL (2.2-4.8); NEUTROPHILS % (AUTO) 80.2 % (42.0-75.0); PLATELET COUNT 173 X10^3/uL (150.0-450.0); RED BLOOD COUNT 4.11 X10^6/uL (3.5-5.4); RED CELL DISTRIBUTION WIDTH 17.2 % (11.6-16.5); WHITE BLOOD COUNT 6.1 X10^3/uL (3.6-10.0)
[2020-12-10] MEDS: REMDESIVIR 100 MG in NS 250 ML IV 250 ML IV SCH (05:57)
[2020-12-10 06:08] LABS: ALANINE AMINOTRANSFERASE 161 Units/L (12-78); ALBUMIN 2.4 g/dL (3.4-5.0); ALKALINE PHOSPHATASE 82 Units/L (46-116); ASPARTATE AMINO TRANSFERASE 46 Units/L (15-37); BLOOD UREA NITROGEN 19 mg/dL (7-18); CALCIUM 7.9 mg/dL (8.5-10.1); CARBON DIOXIDE 27.9 mmol/L (21-32); CHLORIDE 108 mmol/L (98-107); COR CA(FOR HYPOALB) 9.2 mg/dL (8.5-10.1); COR NA(FOR HYPERGLY) 147 mmol/L (136-145); CREATININE 0.78 mg/dL (0.55-1.02); SODIUM 142 mmol/L (136-145); TOTAL PROTEIN 5.7 g/dL (6.4-8.2); eGFR NON BLACK RACES > 60 (>60)
[2020-12-10 06:23] LABS: ABG ALLEN TEST POS; ABG BASE EXCESS 2.8 mmol/L (-2.0-2.0); ABG HCO3 25.7 mmol/L (22-26)
[2020-12-10] MEDS: HumuLIN R SUBCUT PRN ×3 (07:04→21:00)
[2020-12-10 07:26] LABS: ANISOCYTOSIS SLIGHT; HYPOCHROMASIA SLIGHT; MICROCYTOSIS SLIGHT; PLATELET MORPHOLOGY COMMENT NORMAL (NORMAL)
--- NOTE | 2020-12-10 08:06 | RAD ---
HISTORYSOB, COVID-19STUDYCHEST x-ray, 1 VIEWCOMPARISONX-ray 12/09/2020FINDINGSBilateral lung infiltrates are similar to prior study. Borderline cardiomegaly. CHF is not excluded. Central venous catheter terminates in the region of the distal SVC. No pneumothorax or pleural effusion is seen.IMPRESSIONAppearance of the chest is unchanged.Electronically signed by: Haider Land (Dec 10, 2020 08:04:01)
[2020-12-10] MEDS: VIBRAMYCIN 100 MG in D5W 250 ML IV 250 ML IV SCH ×2 (08:29→21:00)
[2020-12-10] MEDS: GLUCOPHAGE XR 24-HR PO SCH ×2 (08:46→21:00)
[2020-12-10] MEDS: LOVENOX INJ 40 MG SYR SC SCH ×2 (08:46→21:00)
[2020-12-10] MEDS: ROBITUSSIN DM PO SCH ×4 (08:46→21:00)
[2020-12-10] MEDS: PROTONIX INJ 40 MG VIAL IVP SCH (08:47)
[2020-12-10] MEDS: FLONASE NASAL SPRAY ENOSTRIL SCH (09:00)
[2020-12-10] MEDS: PULMICORT NEB TX 0.5 MG NEB SCH (09:01)
[2020-12-10] MEDS: BROVANA IN SCH (09:01)
[2020-12-10] MEDS: NYSTATIN POWDER TOP SCH ×2 (09:30→21:00)
[2020-12-10] MEDS: NS 1000 ML 1,000 ML IV SCH ×2 (13:22→23:54)
[2020-12-10] MEDS ORDERED: SNACK - Diabetic Appropriate PO SCH (20:00)
[2020-12-10] MEDS: SNACK - Diabetic Appropriate PO SCH (20:00)
[2020-12-10] MEDS: LEVEMIR SC SCH (21:00)
[2020-12-10] MEDS: ZESTRIL TAB 10 MG PO SCH (21:00)
[2020-12-10] MEDS: TYLENOL 325 MG TAB PO PRN (21:00)
[2020-12-10] MEDS: ZITHROMAX INJ 500 MG VIAL 500 MG in NS 250 ML IV 250 ML IV SCH (23:53)
[2020-12-11] MEDS: SOLU-Medrol 125 MG VIAL IVP SCH ×4 (04:00→21:08)
[2020-12-11 05:52] LABS: BASOPHILS % (AUTO) 0.1 % (0.2-1.0); HEMATOCRIT 31.5 % (36.0-47.0); HEMOGLOBIN 10.3 g/dL (12.0-16.0); LYMPHOCYTES # (AUTO) 0.7 X10^3/uL (1.3-2.9); LYMPHOCYTES % (AUTO) 11.1 % (21.0-51.0); MEAN CORPUSCULAR HEMOGLOBIN 24.3 pg (27.0-34.0); MEAN CORPUSCULAR HGB CONC 32.8 g/dL (33.0-35.0); MEAN CORPUSCULAR VOLUME 74.2 fL (80.0-100.0); MEAN PLATELET VOLUME 9.3 fL (7.4-11.0); MONOCYTES # (AUTO) 0.4 x10^3/uL (0.3-0.8); NEUTROPHILS # (AUTO) 5.2 x10^3/uL (2.2-4.8); NEUTROPHILS % (AUTO) 82.8 % (42.0-75.0); PLATELET COUNT 187 X10^3/uL (150.0-450.0); RED BLOOD COUNT 4.24 X10^6/uL (3.5-5.4); RED CELL DISTRIBUTION WIDTH 17.8 % (11.6-16.5); WHITE BLOOD COUNT 6.3 X10^3/uL (3.6-10.0)
[2020-12-11] MEDS: REMDESIVIR 100 MG in NS 250 ML IV 250 ML IV SCH (05:53)
[2020-12-11 06:06] LABS: ALANINE AMINOTRANSFERASE 150 Units/L (12-78); ALBUMIN 2.6 g/dL (3.4-5.0); ALKALINE PHOSPHATASE 85 Units/L (46-116); ASPARTATE AMINO TRANSFERASE 39 Units/L (15-37); BLOOD UREA NITROGEN 20 mg/dL (7-18); CALCIUM 7.9 mg/dL (8.5-10.1); CARBON DIOXIDE 27.2 mmol/L (21-32); CHLORIDE 106 mmol/L (98-107); COR NA(FOR HYPERGLY) 145 mmol/L (136-145); SODIUM 140 mmol/L (136-145); TOTAL PROTEIN 5.7 g/dL (6.4-8.2); eGFR NON BLACK RACES > 60 (>60)
[2020-12-11 06:46] LABS: ABG BASE EXCESS 1.9 mmol/L (-2.0-2.0); ABG HCO3 25.6 mmol/L (22-26)
[2020-12-11 06:47] LABS: ABG ALLEN TEST TOL WELL
[2020-12-11] MEDS: HumuLIN R SUBCUT PRN ×4 (07:00→21:13)
[2020-12-11 07:01] LABS: MICROCYTOSIS SLIGHT; PLATELET MORPHOLOGY COMMENT NORMAL (NORMAL)
--- NOTE | 2020-12-11 08:09 | RAD ---
HISTORYSOB HX HTN. SX TONSILSSTUDYCHEST, 1 [id number]/31/2021FINDINGSThere is a right IJ catheter with the tip in the SVC. There is mild cardiomegaly. There is stable and unchanged patchy bilateral ground-glass and alveolar radiopacities. No evidence of subcutaneous emphysema. Mild elevation of the diaphragm. No evidence of pneumothorax. No pleural effusion PEIMPRESSIONStable bilateral patchy ground-glass and alveolar radiopacities left more than rightElectronically signed by: Tangela Palomares (Dec 11, 2020 08:07:38)
[2020-12-11] MEDS: FLONASE NASAL SPRAY ENOSTRIL SCH (08:42)
[2020-12-11] MEDS: GLUCOPHAGE XR 24-HR PO SCH ×2 (08:42→21:12)
[2020-12-11] MEDS: LOVENOX INJ 40 MG SYR SC SCH ×2 (08:43→21:06)
[2020-12-11] MEDS: ROBITUSSIN DM PO SCH ×4 (08:43→22:19)
[2020-12-11] MEDS: PROTONIX INJ 40 MG VIAL IVP SCH (08:44)
[2020-12-11] MEDS: NYSTATIN POWDER TOP SCH ×2 (08:45→21:09)
[2020-12-11] MEDS: BROVANA IN SCH ×2 (09:20→20:31)
[2020-12-11] MEDS: PULMICORT NEB TX 0.5 MG NEB SCH ×2 (09:20→20:31)
[2020-12-11] MEDS: VIBRAMYCIN 100 MG in D5W 250 ML IV 250 ML IV SCH ×2 (09:56→21:08)
[2020-12-11] MEDS: NS 1000 ML 1,000 ML IV SCH (10:30)
[2020-12-11 16:27] VITALS: BMI 59.5
[2020-12-11] MEDS: ZESTRIL TAB 10 MG PO SCH (21:07)
[2020-12-11] MEDS: LEVEMIR SC SCH (21:11)
[2020-12-11] MEDS: SNACK - Diabetic Appropriate PO SCH (21:12)
[2020-12-11] MEDS: ZITHROMAX INJ 500 MG VIAL 500 MG in NS 250 ML IV 250 ML IV SCH (22:19)
[2020-12-12] MEDS: SOLU-Medrol 125 MG VIAL IVP SCH ×4 (02:54→20:44)
[2020-12-12] MEDS: NS 1000 ML 1,000 ML IV SCH ×2 (02:54→16:18)
[2020-12-12 05:44] LABS: ABG ALLEN TEST POS; ABG BASE EXCESS 2.4 mmol/L (-2.0-2.0); ABG HCO3 26.4 mmol/L (22-26)
[2020-12-12] MEDS: HumuLIN R SUBCUT PRN ×3 (06:14→20:43)
[2020-12-12] MEDS: REMDESIVIR 100 MG in NS 250 ML IV 250 ML IV SCH (06:14)
[2020-12-12 07:00] LABS: BASOPHILS % (AUTO) 0 % (0.2-1.0); HEMATOCRIT 31.9 % (36.0-47.0); HEMOGLOBIN 10.6 g/dL (12.0-16.0); LYMPHOCYTES # (AUTO) 0.6 X10^3/uL (1.3-2.9); LYMPHOCYTES % (AUTO) 9.3 % (21.0-51.0); MEAN CORPUSCULAR HGB CONC 33.4 g/dL (33.0-35.0); MEAN CORPUSCULAR VOLUME 74.9 fL (80.0-100.0); MEAN PLATELET VOLUME 9.6 fL (7.4-11.0); MONOCYTES # (AUTO) 0.3 x10^3/uL (0.3-0.8); MONOCYTES % (AUTO) 4.4 % (0.0-13.0); NEUTROPHILS # (AUTO) 5.4 x10^3/uL (2.2-4.8); NEUTROPHILS % (AUTO) 86.3 % (42.0-75.0); PLATELET COUNT 193 X10^3/uL (150.0-450.0); RED BLOOD COUNT 4.26 X10^6/uL (3.5-5.4); RED CELL DISTRIBUTION WIDTH 17.9 % (11.6-16.5); WHITE BLOOD COUNT 6.3 X10^3/uL (3.6-10.0)
[2020-12-12 07:22] LABS: ALANINE AMINOTRANSFERASE 137 Units/L (12-78); ALBUMIN 2.7 g/dL (3.4-5.0); ALKALINE PHOSPHATASE 100 Units/L (46-116); ASPARTATE AMINO TRANSFERASE 26 Units/L (15-37); BLOOD UREA NITROGEN 18 mg/dL (7-18); CALCIUM 8.2 mg/dL (8.5-10.1); CARBON DIOXIDE 28.5 mmol/L (21-32); CHLORIDE 105 mmol/L (98-107); COR CA(FOR HYPOALB) 9.2 mg/dL (8.5-10.1); COR NA(FOR HYPERGLY) 146 mmol/L (136-145); CREATININE 0.72 mg/dL (0.55-1.02); SODIUM 140 mmol/L (136-145); eGFR NON BLACK RACES > 60 (>60)
[2020-12-12 07:46] LABS: PLATELET MORPHOLOGY COMMENT NORMAL (NORMAL)
[2020-12-12 07:47] LABS: MICROCYTOSIS SLIGHT
--- NOTE | 2020-12-12 08:22 | RAD ---
HISTORYFollow-up COVID-19STUDYChest AP [id number]/01/2021FINDINGSThere is a right IJ line in good position. The heart remains enla rged. Lungs remain hypoinflated. Bilateral patchy ground-glass and alveolar infiltrates are identifie d unchanged when compared to the prior examination. No pleural effusions are identified. Bony thorax is unremarkable.IMPRESSIONNo change hypo inflationNo change cardiomegaly without congestive heart vicenta lureNo change bilateral patchy ground-glass and alveolar infiltratesElectronically signed by: STEPHANIE BESS (Dec 12, 2020 08:20:23)
[2020-12-12] MEDS: PULMICORT NEB TX 0.5 MG NEB SCH ×2 (09:19→21:00)
[2020-12-12] MEDS: BROVANA IN SCH ×2 (09:19→21:00)
[2020-12-12] MEDS: PROTONIX INJ 40 MG VIAL IVP SCH (09:35)
[2020-12-12] MEDS: NYSTATIN POWDER TOP SCH ×2 (09:35→20:44)
[2020-12-12] MEDS: ROBITUSSIN DM PO SCH ×4 (09:35→20:42)
[2020-12-12] MEDS: GLUCOPHAGE XR 24-HR PO SCH ×2 (09:35→20:41)
[2020-12-12] MEDS: VIBRAMYCIN 100 MG in D5W 250 ML IV 250 ML IV SCH ×2 (09:35→20:42)
[2020-12-12] MEDS: LOVENOX INJ 40 MG SYR SC SCH ×2 (09:35→20:42)
[2020-12-12] MEDS: FLONASE NASAL SPRAY ENOSTRIL SCH (09:36)
[2020-12-12] MEDS: SNACK - Diabetic Appropriate PO SCH (20:41)
[2020-12-12] MEDS: ZESTRIL TAB 10 MG PO SCH (20:44)
[2020-12-12] MEDS ORDERED: LEVEMIR SC SCH (21:00)
[2020-12-13] MEDS: ZITHROMAX INJ 500 MG VIAL 500 MG in NS 250 ML IV 250 ML IV SCH (00:05)
[2020-12-13] MEDS: NS 1000 ML 1,000 ML IV SCH (01:09)
[2020-12-13] MEDS: SOLU-Medrol 125 MG VIAL IVP SCH ×2 (04:00→08:45)
[2020-12-13] MEDS: REMDESIVIR 100 MG in NS 250 ML IV 250 ML IV SCH (05:26)
[2020-12-13] MEDS: HumuLIN R SUBCUT PRN ×2 (05:57→12:07)
[2020-12-13 06:45] LABS: BASOPHILS % (AUTO) 0.2 % (0.2-1.0); HEMATOCRIT 32.8 % (36.0-47.0); HEMOGLOBIN 10.9 g/dL (12.0-16.0); LYMPHOCYTES # (AUTO) 0.6 X10^3/uL (1.3-2.9); LYMPHOCYTES % (AUTO) 7.3 % (21.0-51.0); MEAN CORPUSCULAR HEMOGLOBIN 23.5 pg (27.0-34.0); MEAN CORPUSCULAR HGB CONC 33.2 g/dL (33.0-35.0); MEAN CORPUSCULAR VOLUME 70.9 fL (80.0-100.0); MEAN PLATELET VOLUME 9.6 fL (7.4-11.0); MONOCYTES # (AUTO) 0.3 x10^3/uL (0.3-0.8); MONOCYTES % (AUTO) 4.4 % (0.0-13.0); NEUTROPHILS # (AUTO) 6.8 x10^3/uL (2.2-4.8); NEUTROPHILS % (AUTO) 88.1 % (42.0-75.0); PLATELET COUNT 234 X10^3/uL (150.0-450.0); RED BLOOD COUNT 4.62 X10^6/uL (3.5-5.4); RED CELL DISTRIBUTION WIDTH 17.8 % (11.6-16.5); WHITE BLOOD COUNT 7.7 X10^3/uL (3.6-10.0)
[2020-12-13 07:48] LABS: ALANINE AMINOTRANSFERASE 160 Units/L (12-78); ALBUMIN 2.8 g/dL (3.4-5.0); ALKALINE PHOSPHATASE 154 Units/L (46-116); ASPARTATE AMINO TRANSFERASE 44 Units/L (15-37); BLOOD UREA NITROGEN 18 mg/dL (7-18); CALCIUM 8.3 mg/dL (8.5-10.1); CARBON DIOXIDE 26.4 mmol/L (21-32); CHLORIDE 103 mmol/L (98-107); COR CA(FOR HYPOALB) 9.3 mg/dL (8.5-10.1); COR NA(FOR HYPERGLY) 145 mmol/L (136-145); CREATININE 0.72 mg/dL (0.55-1.02); SODIUM 138 mmol/L (136-145); TOTAL PROTEIN 6.2 g/dL (6.4-8.2); eGFR NON BLACK RACES > 60 (>60)
--- NOTE | 2020-12-13 08:14 | RAD ---
HISTORYCOVID PNEUMONIASTUDYCHEST, 1 [id number]/02/2021FINDINGSFocal areas of opacity probably from bronchopneumonia have improved.No pleural effusion or pneumothorax.The heart size is magnified.Bones are unremarkable.Right jugular central venous catheter is in the expected location of the superior vena cava.IMPRESSION1. Improved bronchopneumoniaElectronically signed by: Moises Joiner (Dec 13, 2020 08:12:38)
[2020-12-13] MEDS: GLUCOPHAGE XR 24-HR PO SCH (08:43)
[2020-12-13] MEDS: LOVENOX INJ 40 MG SYR SC SCH (08:44)
[2020-12-13] MEDS: NYSTATIN POWDER TOP SCH (08:44)
[2020-12-13] MEDS: FLONASE NASAL SPRAY ENOSTRIL SCH (08:44)
[2020-12-13] MEDS: ROBITUSSIN DM PO SCH (08:45)
[2020-12-13] MEDS: PROTONIX INJ 40 MG VIAL IVP SCH (08:45)
[2020-12-13] MEDS: VIBRAMYCIN 100 MG in D5W 250 ML IV 250 ML IV SCH (08:47)
[2020-12-13 09:25] LABS: MICROCYTOSIS SLIGHT; PLATELET MORPHOLOGY COMMENT NORMAL (NORMAL)
[2020-12-13 09:26] LABS: TEAR DROP CELLS SLIGHT
[2020-12-13] MEDS: PULMICORT NEB TX 0.5 MG NEB SCH (09:27)
[2020-12-13] MEDS: BROVANA IN SCH (09:27)
[2020-12-13 12:33] VITALS: BP 141/66
[2020-12-13] MEDS ORDERED: SOLU-Medrol 125 MG VIAL IVP SCH (14:00)
[2020-12-13 14:30] LABS: ABG ALLEN TEST POS; ABG BASE EXCESS 2.8 mmol/L (-2.0-2.0); ABG HCO3 26.1 mmol/L (22-26)
== END 2020-12-13 15:15 | disposition home or self-care (01) | DRG 177 ==
LOC: ER 14:33 → OBS 18:27 → ICU 20:12 → MED/SURG 12-11 15:55
PROVIDERS: ADMIT Internal Medicine; ATTEND Internal Medicine
DX: U07.1 COVID-19; J12.82 Pneumonia due to coronavirus disease 2019; R79.89 Other specified abnormal findings of blood chemistry; R26.89 Other abnormalities of gait and mobility; R07.89 Other chest pain; R79.82 Elevated C-reactive protein (CRP); R60.0 Localized edema; R06.02 Shortness of breath; E11.65 Type 2 diabetes mellitus with hyperglycemia; E66.8 Other obesity; I10 Essential (primary) hypertension

== ENCOUNTER 2023-07-08 16:28 | Observation (INO) ==
[2023-07-08] MEDS ORDERED: ZOFRAN INJ 4 MG VIAL IVP PRN (17:44)
--- NOTE | 2023-07-08 18:00 | DR.H&P ---
H&P History & Physical for Day of: H&P Date: 07/08/23 Chief Complaint Chief Complaint: ABDOMINAL PAIN, HIGH BLOOD SUGAR Allergies Allergies Allergy/AdvReac Type Severity Reaction Status Date / Time No Known Drug Allergies Allergy Verified 05/19/20 13:34 History of Present Illness History of Present Illness: PT IS 22F, DIRECT ADMIT FROM DR RAMIREZ OFFICE WITH GLUCOSE 450, RLQ PAIN AND DIZZINESS. PT A1C 11.3 AND WAS 6 THREE MOS AGO. PT REPORTS SHE HAS BEEN CONSTIPATED FOR 2 WEEKS WITH BRIGHT RED BLOOD IN HER STOOL. PT DENIES ANY FEVER BUT CO SWEATING AND POLYURIA. PT HAD RIGHT LOWER ABDOMINAL PAIN COMPLAINING IT RADIATES TO PELVIS AND REFERRED PAIN IN RIGHT TIGHT. LMP UNKNOWN. PT IS TYPE 2 DM WITH HTN. PT US IN OFFICE NEGATIVE FOR BLOOD AND LEUKOCYTES. PT REPORT SHE HAD STREP THROAT IN FEB AND URI LAST WEEK, UPPER RESP SYMPTOMS HAVE RESOLVED WITH EXCEPTION OF LEFT LUNG PLEURITIC PAIN. PT ADMITTED FOR EVALUATION AND TREATMENT OF ACUTE ILLNESS. ] Past Medical History Past Medical History: Hypertension Past Surgical History Surgical History: IMAGE [employer]ULTANT Surgery and Tonsillectomy Family History Family Medical History: Hypertension Medications Home Medications: Home Medications Medication Instructions Recorded Confirmed Type lisinopril 10 mg tablet 10 mg PO HS 12/04/20 06/16/22 History tizanidine 4 mg tablet 4 mg PO QPM 06/16/22 06/16/22 History Review of Systems Constitutional: Chills and Sweats Eyes: Vision Change ENT: No Symptoms Reported Respiratory: Pleuritic Pain Cardiovascular: Edema and Light Headedness Gastrointestinal: Nausea, Abdominal Pain and Constipation Genitourinary: Frequency Musculoskeletal: Back Pain Skin: No Symptoms Reported Neurological: Other (DIZZINESS) Oriented: Normal Eyes: Normal Ear: Normal Nose: Normal Throat: Exudate Respiratory: RLL Diminished and LLL Diminished Cardiovascular: Normal Auscultation: Bowel Sounds: Decreased Palpation: negative Mass Pulsatile Tenderness: RLQ and Suprapubic Skin: Decreased Turgur and Diaphoresis Musculoskeletal: Back:Lumbar Psychiatric: Normal Mood Description: Anxious Affect: Anxious Speech Pattern: Clear Assessment/Plan (1) Diabetes mellitus with hyperglycemia: Narrative Support Text: ADMIT, IV HYDRATION SSI, SERUM AND URINE ACETONE BP CONTROL, I&OS VERIFY HOME MEDICATION ABD SERIES ON ADMISSION NPO AFTER MIDNIGHT FOR AM CT ABD/PELVIS WITH CONTRAST HOLD METFORMIN Status: Acute (2) Right lower quadrant abdominal pain: Status: Acute (3) Hypertension: Qualifiers: Hypertension type: primary hypertension Qualified Code(s): I10 - Essential (primary) hypertension Status: Chronic (4) Dehydration with hyponatremia: Status: Acute
[2023-07-08 18:26] LABS: BASOPHILS # (AUTO) 0.1 X10^3/uL (0.0-0.1); EOSINOPHILS # (AUTO) 0.3 x10^3/uL (0.0-0.2); EOSINOPHILS % (AUTO) 3.4 % (0.9-2.9); HEMATOCRIT 41.5 % (36.0-47.0); HEMOGLOBIN 13.3 g/dL (12.0-16.0); LYMPHOCYTES # (AUTO) 2.6 X10^3/uL (1.3-2.9); LYMPHOCYTES % (AUTO) 27.1 % (21.0-51.0); MEAN CORPUSCULAR HEMOGLOBIN 22.3 pg (27.0-34.0); MEAN CORPUSCULAR HGB CONC 32.2 g/dL (33.0-35.0); MEAN CORPUSCULAR VOLUME 69.2 fL (80.0-100.0); MEAN PLATELET VOLUME 9.8 fL (7.4-11.0); MONOCYTES # (AUTO) 0.6 x10^3/uL (0.3-0.8); MONOCYTES % (AUTO) 6.1 % (0.0-13.0); NEUTROPHILS # (AUTO) 6.1 x10^3/uL (2.2-4.8); NEUTROPHILS % (AUTO) 62.4 % (42.0-75.0); PLATELET COUNT 255 X10^3/uL (150.0-450.0); RED BLOOD COUNT 5.99 X10^6/uL (3.5-5.4); RED CELL DISTRIBUTION WIDTH 18.2 % (11.6-16.5); WHITE BLOOD COUNT 9.8 X10^3/uL (3.6-10.0)
[2023-07-08 18:34] LABS: ALANINE AMINOTRANSFERASE 68 Units/L (12-78); ALBUMIN 3.4 g/dL (3.4-5.0); ALKALINE PHOSPHATASE 116 Units/L (46-116); ASPARTATE AMINO TRANSFERASE 34 Units/L (15-37); BLOOD UREA NITROGEN 10 mg/dL (7-18); CARBON DIOXIDE 25.5 mmol/L (21-32); CHLORIDE 101 mmol/L (98-107); COR NA(FOR HYPERGLY) 143 mmol/L (136-145); GLUCOSE 331 mg/dL (65-99); MAGNESIUM 1.9 mg/dL (2.0-2.9); POTASSIUM 3.8 mmol/L (3.5-5.1); SODIUM 137 mmol/L (136-145); TOTAL PROTEIN 8.2 g/dL (6.4-8.2); eGFR NON BLACK RACES > 60 (>60)
[2023-07-08 18:49] LABS: ANISOCYTOSIS SLIGHT; HYPOCHROMASIA 1+; MICROCYTOSIS 1+; PLATELET MORPHOLOGY COMMENT NORMAL (NORMAL)
[2023-07-08 18:50] LABS: SERUM ACETONE NEGATIVE (NEGATIVE)
[2023-07-08] MEDS ORDERED: CONSULT PHARMACY - POTASSIUM & MAGNESIUM XX SCH (19:00)
[2023-07-08] MEDS: NS 1,000 ML IV 1,000 ML IV SCH (19:50)
[2023-07-08] MEDS: MAGNESIUM SULFATE 1 GRAM/100 mL PREMIX 1 G/100 ML BAG IV SCH (19:50)
[2023-07-08] MEDS: NovoLIN R (or HumuLIN R) SUBCUT PRN (20:19)
[2023-07-08] MEDS: SNACK - Diabetic Appropriate PO SCH (20:20)
[2023-07-08] MEDS: ZESTRIL TAB 10 MG PO SCH (20:22)
[2023-07-08] MEDS: K-RIDER 10 MEQ/100 ML WATER 10 MEQ/100 ML BAG IV SCH (21:52)
[2023-07-09 02:22] LABS: BILIRUBIN,URINE NEGATIVE (NEGATIVE); BLOOD/HEMOGLOBIN,URINE 1+ (NEGATIVE); GLUCOSE, URINE 4+ (NEGATIVE); KETONES,URINE NEGATIVE (NEGATIVE); LEUKOCYTE ESTERASE ,URINE NEGATIVE (NEGATIVE); NITRITES,URINE NEGATIVE (NEGATIVE); PROTEIN,URINE NEGATIVE (NEGATIVE); UROBILINOGEN,URINE NORMAL (NORMAL)
[2023-07-09 02:26] LABS: APPEARANCE,URINE CLEAR (CLEAR); BACTERIA,URINE TRACE /HPF (NEGATIVE); COLOR,URINE YELLOW (YELLOW); RBC,URINE 0-2 /HPF (0-3); SQUAMOUS EPITHELIAL CELL,UR RARE /HPF (NEGATIVE)
[2023-07-09 06:15] LABS: HEMOGLOBIN 12.2 g/dL (12.0-16.0); RED BLOOD COUNT 5.47 X10^6/uL (3.5-5.4)
[2023-07-09 06:25] LABS: BASOPHILS # (AUTO) 0.1 X10^3/uL (0.0-0.1); BASOPHILS % (AUTO) 1.1 % (0.2-1.0); EOSINOPHILS # (AUTO) 0.3 x10^3/uL (0.0-0.2); EOSINOPHILS % (AUTO) 3.7 % (0.9-2.9); HEMATOCRIT 37.8 % (36.0-47.0); LYMPHOCYTES # (AUTO) 2.5 X10^3/uL (1.3-2.9); LYMPHOCYTES % (AUTO) 30.7 % (21.0-51.0); MEAN CORPUSCULAR HEMOGLOBIN 22.3 pg (27.0-34.0); MEAN CORPUSCULAR HGB CONC 32.3 g/dL (33.0-35.0); MEAN CORPUSCULAR VOLUME 69.1 fL (80.0-100.0); MEAN PLATELET VOLUME 9.9 fL (7.4-11.0); MONOCYTES # (AUTO) 0.6 x10^3/uL (0.3-0.8); MONOCYTES % (AUTO) 7.1 % (0.0-13.0); NEUTROPHILS # (AUTO) 4.6 x10^3/uL (2.2-4.8); NEUTROPHILS % (AUTO) 57.4 % (42.0-75.0); PLATELET COUNT 215 X10^3/uL (150.0-450.0)
[2023-07-09 06:36] LABS: ALANINE AMINOTRANSFERASE 53 Units/L (12-78); ALKALINE PHOSPHATASE 94 Units/L (46-116); ANISOCYTOSIS SLIGHT; ASPARTATE AMINO TRANSFERASE 31 Units/L (15-37); BLOOD UREA NITROGEN 11 mg/dL (7-18); CALCIUM 8.4 mg/dL (8.5-10.1); CHLORIDE 104 mmol/L (98-107); COR CA(FOR HYPOALB) 9.2 mg/dL (8.5-10.1); COR NA(FOR HYPERGLY) 144 mmol/L (136-145); CREATININE 0.51 mg/dL (0.55-1.02); GLUCOSE 217 mg/dL (65-99); HYPOCHROMASIA 1+; MICROCYTOSIS 1+; PLATELET MORPHOLOGY COMMENT NORMAL (NORMAL); POTASSIUM 3.7 mmol/L (3.5-5.1); SODIUM 141 mmol/L (136-145); TOTAL PROTEIN 7.2 g/dL (6.4-8.2); eGFR NON BLACK RACES > 60 (>60)
--- NOTE | 2023-07-09 07:34 | RAD ---
EXAM: Abdomen series with PA chest four views HISTORY: Right lower quadrant pain COMPARISON: None FINDINGS: PA chest: No acute. Abdomen series: Supine and upright views demonstrate normal gas pattern without evidence for bowel ob struction, perforation, mass or abnormal calcification. IMPRESSION: No abnormality demonstrated. THIS IS AN ELECTRONICALLY VERIFIED FINAL REPORT 07/09/2023 7:27 AM - Electronically signed by Angus Shook MD
[2023-07-09] MEDS ORDERED: GOLYTELY or GAVILYTE or Equivalent PO SCH (09:00)
[2023-07-09] MEDS: CIPRO IV 400 MG PREMIX* 400 MG/200 ML IV.SOLN. IV SCH (09:56)
[2023-07-09] MEDS: CHRONULAC PO SCH (09:57)
[2023-07-09] MEDS ORDERED: DULCOLAX SUPPOSITORY 10 MG ONE (10:35)
[2023-07-09] MEDS: DULCOLAX SUPPOSITORY 10 MG RECTAL ONE (10:42)
--- NOTE | 2023-07-09 11:32 | PCM.PROG ---
Progress Note Progress Note for Day of Date of Exam: 07/09/23 Subjective Subjective: Patient is a 22-year-old female patient who was a direct admit from Dr. Hair's office yesterday with glucose 450, RLQ pain, and dizziness. In office yesterday, patient a1c was found to be 11.3- increase from previous reading 3 months ago at 6.0. She had strep throat in May and a URI last week, upper respiratory symptoms resolved aside from left lung pleuritic pain. Upon admission, we started the patient on IV hydration, SSI coverage. We obtained a serum and urine acetone, which were negative. Abdominal series was normal. We held her metformin and she was NPO since midnight with plans for Ct abdomen and pelvis with contrast, however insurance denied coverage. We will plan to obtain abdominal ultrasound. Morning labs: hgb 12.2, wbc 8.0, bun 11/creatinine 0.51. Vitals: 134/78-86-18-97.7-98% room air. Past Medical Family Social History Allergies: Allergies No Known Drug Allergies Allergy (Verified 05/19/20 13:34) Vital Signs and I&O's Vital Signs: Vital Signs Temperature 97.7 F Temperature 97.6 F Pulse Rate [Right Brachial] 86 Pulse Rate [Right Brachial] 93 Respiratory Rate 18 Respiratory Rate 20 Blood Pressure [Right Arm] 134/78 Blood Pressure [Right Arm] 132/82 O2 Sat by Pulse Oximetry 98 O2 Sat by Pulse Oximetry 96 Intake and Output: Intake & Output 07/06/23 07/07/23 07/08/23 07/09/23 11:59 11:59 11:59 11:59 Intake Total 1815 / 1815 Balance 1815 / 1815 Physical Exam Oriented: Normal Eyes: Normal Ear: Normal Nose: Normal Throat: Exudate Respiratory: Diminished Cardiovascular: Normal Auscultation: Bowel Sounds: Decreased Tenderness: RLQ and Suprapubic Skin: Decreased Turgur Musculoskeletal: Back:Lumbar Psychiatric: Normal Mood Description: Anxious Affect: Anxious Speech Pattern: Clear Laboratory and Diagnostics 07/09/23 05:11 07/09/23 05:11 Labs: Laboratory WBC 8.0 X10^3/uL (3.6-10.0) 07/09/23 05:11 RBC 5.47 X10^6/uL (3.5-5.4) H 07/09/23 05:11 Hgb 12.2 g/dL (12.0-16.0) 07/09/23 05:11 Hct 37.8 % (36.0-47.0) 07/09/23 05:11 MCV 69.1 fL (80.0-100.0) L 07/09/23 05:11 MCH 22.3 pg (27.0-34.0) L 07/09/23 05:11 MCHC 32.3 g/dL (33.0-35.0) L 07/09/23 05:11 RDW 18.0 % (11.6-16.5) H 07/09/23 05:11 Plt Count 215 X10^3/uL (150.0-450.0) 07/09/23 05:11 Plt Count Comment Adequate (ADEQUATE) 07/09/23 05:11 MPV 9.9 fL (7.4-11.0) 07/09/23 05:11 Neut % (Auto) 57.4 % (42.0-75.0) 07/09/23 05:11 Lymph % (Auto) 30.7 % (21.0-51.0) 07/09/23 05:11 [place] % (Auto) 7.1 % (0.0-13.0) 07/09/23 05:11 Eos % (Auto) 3.7 % (0.9-2.9) H 07/09/23 05:11 Baso % (Auto) 1.1 % (0.2-1.0) H 07/09/23 05:11 Neut # (Auto) 4.6 x10^3/uL (2.2-4.8) 07/09/23 05:11 Lymph # (Auto) 2.5 X10^3/uL (1.3-2.9) 07/09/23 05:11 [place] # (Auto) 0.6 x10^3/uL (0.3-0.8) 07/09/23 05:11 Eos # (Auto) 0.3 x10^3/uL (0.0-0.2) H 07/09/23 05:11 Baso # (Auto) 0.1 X10^3/uL (0.0-0.1) 07/09/23 05:11 Absolute Nucleated RBC 0.0 /100WBC 07/09/23 05:11 Plt Morphology Comment Normal (NORMAL) 07/09/23 05:11 RBC Morphology Abnormal (NORMAL) A 07/09/23 05:11 Hypochromasia 1+ A 07/09/23 05:11 Anisocytosis Slight A 07/09/23 05:11 Microcytosis 1+ A 07/09/23 05:11 Sodium 141 mmol/L (136-145) 07/09/23 05:11 Corrected Sodium 144 mmol/L (136-145) 07/09/23 05:11 Potassium 3.7 mmol/L (3.5-5.1) 07/09/23 05:11 Chloride 104 mmol/L (98-107) 07/09/23 05:11 Carbon Dioxide 26.0 mmol/L (21-32) 07/09/23 05:11 BUN 11 mg/dL (7-18) 07/09/23 05:11 Creatinine 0.51 mg/dL (0.55-1.02) L 07/09/23 05:11 Est GFR (MDRD) Af Amer > 60 (>60) 07/09/23 05:11 Est GFR (MDRD) Non-Af > 60 (>60) 07/09/23 05:11 Glucose 217 mg/dL (65-99) H 07/09/23 05:11 POC Glucose (mg/dL) 248 mg/dL (65-99) H 07/09/23 05:14 Calcium 8.4 mg/dL (8.5-10.1) L 07/09/23 05:11 Corrected Calcium 9.2 mg/dL (8.5-10.1) 07/09/23 05:11 Magnesium 2.0 mg/dL (2.0-2.9) 07/09/23 05:11 Total Bilirubin 0.80 mg/dL (0.2-1.0) 07/09/23 05:11 AST 31 Units/L (15-37) 07/09/23 05:11 ALT 53 Units/L (12-78) 07/09/23 05:11 Alkaline Phosphatase 94 Units/L (46-116) 07/09/23 05:11 Total Protein 7.2 g/dL (6.4-8.2) 07/09/23 05:11 Albumin 3.0 g/dL (3.4-5.0) L 07/09/23 05:11 Globulin 4.2 g/dL (2.5-4.5) 07/09/23 05:11 Albumin/Globulin Ratio 0.7 Ratio (1.1-2.1) L 07/09/23 05:11 Specimen Type Clean catch urine 07/09/23 01:45 Urine Color Yellow (YELLOW) 07/09/23 01:45 Urine Appearance Clear (CLEAR) 07/09/23 01:45 Urine pH 5.0 (5.0 - 8.0) 07/09/23 01:45 Ur Specific [place] 1.025 (1.000-1.030) 07/09/23 01:45 Urine Protein Negative (NEGATIVE) 07/09/23 01:45 Urine Glucose (UA) 4+ (NEGATIVE) 07/09/23 01:45 Urine Ketones Negative (NEGATIVE) 07/09/23 01:45 Urine Blood 1+ (NEGATIVE) 07/09/23 01:45 Urine Nitrite Negative (NEGATIVE) 07/09/23 01:45 Urine Bilirubin Negative (NEGATIVE) 07/09/23 01:45 Urine Acetone Negative (NEGATIVE) 07/09/23 01:45 Urine Urobilinogen Normal (NORMAL) 07/09/23 01:45 Ur Leukocyte Esterase Negative (NEGATIVE) 07/09/23 01:45 Urine RBC 0-2 /HPF (0-3) 07/09/23 01:45 Urine WBC 0-2 /HPF (0-5) 07/09/23 01:45 Ur Squamous Epith Cells Rare /HPF (NEGATIVE) 07/09/23 01:45 Urine Bacteria Trace /HPF (NEGATIVE) 07/09/23 01:45 Ur Culture Indicated? Yes/culture set up 07/09/23 01:45 Urine Test Negative <10 mIU/mL 07/09/23 01:45 Acetone, Semi-Quant Negative (NEGATIVE) 07/08/23 18:05 Plan (1) Diabetes mellitus with hyperglycemia: Status: Acute Plan: Start IV cipro for colitis, obtain abdominal ultrasound, obtain stool studies, advance diet to clear liquids since no vomiting since admission. Continue IV hydration, SSI, home medications. (2) Right lower quadrant abdominal pain: Status: Acute (3) Colitis: Status: Acute (4) Hypertension: Status: Chronic Qualifiers: Hypertension type: primary hypertension Qualified Code(s): I10 - Essential (primary) hypertension (5) Dehydration with hyponatremia: Status: Acute
--- NOTE | 2023-07-09 16:03 | US ---
EXAM: ABDOMEN ultrasound HISTORY: left lower abd pain - COMPARISON: X-ray 07/08/2023 TECHNIQUE: Multiple mcdowell scale and color flow Doppler images of the abdomen were obtained with image documentati on. FINDINGS: Study is limited due to patient's size. There is likely fatty infiltration of the liver. Liver is n ormal in size. Hepatic vasculature cannot be evaluated due to patient's size. Liver is partially ob scured. Gallbladder appears normal. No biliary ductal dilation. Pancreas is obscured due to bowel gas and patient's size. Spleen is normal in size. No renal abnormality. Right kidney measures 12.0 cm in length and left kidney measures 13.2 cm in [facility]. Aorta and IVC are obscured due to patient's size and bowel gas. IMPRESSION: Patient's size limits the evaluation. There is likely fatty infiltration of the liver. THIS IS AN ELECTRONICALLY VERIFIED FINAL REPORT 07/09/2023 4:00 PM - Electronically signed by Haider Land MD
[2023-07-09] MEDS: TORADOL 15 MG VIAL IVP PRN (18:05)
[2023-07-09 20:09] LABS: CRYPTOSPORIDIUM PARVUM ANTIGEN NEGATIVE (NEGATIVE); GIARDIA LAMBLIA ANTIGEN NEGATIVE (NEGATIVE)
[2023-07-10 06:20] LABS: BASOPHILS # (AUTO) 0.1 X10^3/uL (0.0-0.1); BASOPHILS % (AUTO) 0.7 % (0.2-1.0); EOSINOPHILS # (AUTO) 0.3 x10^3/uL (0.0-0.2); EOSINOPHILS % (AUTO) 4.5 % (0.9-2.9); HEMATOCRIT 36.1 % (36.0-47.0); HEMOGLOBIN 11.5 g/dL (12.0-16.0); LYMPHOCYTES # (AUTO) 1.7 X10^3/uL (1.3-2.9); MEAN CORPUSCULAR HEMOGLOBIN 22.3 pg (27.0-34.0); MEAN CORPUSCULAR HGB CONC 31.8 g/dL (33.0-35.0); MEAN CORPUSCULAR VOLUME 70.1 fL (80.0-100.0); MEAN PLATELET VOLUME 9.2 fL (7.4-11.0); MONOCYTES # (AUTO) 0.5 x10^3/uL (0.3-0.8); MONOCYTES % (AUTO) 6.9 % (0.0-13.0); NEUTROPHILS # (AUTO) 4.9 x10^3/uL (2.2-4.8); NEUTROPHILS % (AUTO) 64.9 % (42.0-75.0); PLATELET COUNT 207 X10^3/uL (150.0-450.0); RED BLOOD COUNT 5.15 X10^6/uL (3.5-5.4); RED CELL DISTRIBUTION WIDTH 17.8 % (11.6-16.5); WHITE BLOOD COUNT 7.6 X10^3/uL (3.6-10.0)
[2023-07-10 06:33] LABS: ALANINE AMINOTRANSFERASE 67 Units/L (12-78); ALBUMIN 2.5 g/dL (3.4-5.0); ALKALINE PHOSPHATASE 76 Units/L (46-116); ASPARTATE AMINO TRANSFERASE 32 Units/L (15-37); BLOOD UREA NITROGEN 6 mg/dL (7-18); CALCIUM 8.2 mg/dL (8.5-10.1); CARBON DIOXIDE 25.7 mmol/L (21-32); CHLORIDE 107 mmol/L (98-107); COR CA(FOR HYPOALB) 9.4 mg/dL (8.5-10.1); COR NA(FOR HYPERGLY) 143 mmol/L (136-145); CREATININE 0.43 mg/dL (0.55-1.02); GLUCOSE 210 mg/dL (65-99); POTASSIUM 3.8 mmol/L (3.5-5.1); SODIUM 140 mmol/L (136-145); TOTAL PROTEIN 6.3 g/dL (6.4-8.2); eGFR NON BLACK RACES > 60 (>60)
[2023-07-10 06:53] LABS: PLATELET MORPHOLOGY COMMENT NORMAL (NORMAL)
[2023-07-10 06:54] LABS: ANISOCYTOSIS SLIGHT; HYPOCHROMASIA 1+; MICROCYTOSIS 1+
[2023-07-10 09:02] VITALS: BMI 52.9
--- NOTE | 2023-07-10 11:15 | PCM.PROG ---
Progress Note Progress Note for Day of Date of Exam: 07/10/23 Subjective Subjective: Patient seen at bedside, no acute events overnight. She feels better this AM. She states her abdominal pain is better today. She states her appetite is still not that good. She is trying to drink fluids. She is admitted for hyperglycemia, possible colitis and UTI. She is currently on IV fluids and IV Cipro. Abdominal US showed fatty liver. CTAP was ordered but was not approved by the insurance. KUB was negative. Labs/imaging reviewed -Hg 11.5 K:3.8 Glucose 210 -Urine Cx: contamination -US abd: fatty liver -Stool Cx (-) campy Plan: Continue hydration, pain control and anti-emetics. Follow pending Cx. Will re-order urine Cx. Continue IV Cipro. Continue SSI. Advance diet to full liquids. Replace electrolytes prn. Monitor AM labs and imaging. Past Medical Family Social History Allergies: Allergies No Known Drug Allergies Allergy (Verified 05/19/20 13:34) Vital Signs and I&O's Vital Signs: Vital Signs Temperature 97.7 F Temperature 98.4 F Pulse Rate [Right Brachial] 70 Pulse Rate [Right Brachial] 89 Respiratory Rate 18 Respiratory Rate 22 Blood Pressure [Right Arm] 120/65 Blood Pressure [Right Arm] 123/61 O2 Sat by Pulse Oximetry 93 O2 Sat by Pulse Oximetry 96 Intake and Output: Intake & Output 07/07/23 07/08/23 07/09/23 07/10/23 23:59 23:59 23:59 23:59 Intake Total 220 / 220 4730 / 4730 1165 / 1165 Balance 220 / 220 4730 / 4730 1165 / 1165 Physical Exam Oriented: Normal Eyes: Normal Ear: Normal Nose: Normal Respiratory: Diminished Cardiovascular: Normal Auscultation: Bowel Sounds: Normal Tenderness: RLQ, Suprapubic and Mild Skin: Decreased Turgur Musculoskeletal: Back:Lumbar Psychiatric: Normal Mood Description: Calm Affect: Normal Speech Pattern: Clear Laboratory and Diagnostics 07/10/23 06:10 07/10/23 06:10 Labs: 07/09/23 01:45 Urine,Clean Catch Urine Culture - Final 07/09/23 19:20 Stool - Final Laboratory WBC 7.6 X10^3/uL (3.6-10.0) 07/10/23 06:10 RBC 5.15 X10^6/uL (3.5-5.4) 07/10/23 06:10 Hgb 11.5 g/dL (12.0-16.0) L 07/10/23 06:10 Hct 36.1 % (36.0-47.0) 07/10/23 06:10 MCV 70.1 fL (80.0-100.0) L 07/10/23 06:10 MCH 22.3 pg (27.0-34.0) L 07/10/23 06:10 MCHC 31.8 g/dL (33.0-35.0) L 07/10/23 06:10 RDW 17.8 % (11.6-16.5) H 07/10/23 06:10 Plt Count 207 X10^3/uL (150.0-450.0) 07/10/23 06:10 Plt Count Comment Adequate (ADEQUATE) 07/10/23 06:10 MPV 9.2 fL (7.4-11.0) 07/10/23 06:10 Neut % (Auto) 64.9 % (42.0-75.0) 07/10/23 06:10 Lymph % (Auto) 23.0 % (21.0-51.0) 07/10/23 06:10 [place] % (Auto) 6.9 % (0.0-13.0) 07/10/23 06:10 Eos % (Auto) 4.5 % (0.9-2.9) H 07/10/23 06:10 Baso % (Auto) 0.7 % (0.2-1.0) 07/10/23 06:10 Neut # (Auto) 4.9 x10^3/uL (2.2-4.8) H 07/10/23 06:10 Lymph # (Auto) 1.7 X10^3/uL (1.3-2.9) 07/10/23 06:10 [place] # (Auto) 0.5 x10^3/uL (0.3-0.8) 07/10/23 06:10 Eos # (Auto) 0.3 x10^3/uL (0.0-0.2) H 07/10/23 06:10 Baso # (Auto) 0.1 X10^3/uL (0.0-0.1) 07/10/23 06:10 Absolute Nucleated RBC 0.0 /100WBC 07/10/23 06:10 Plt Morphology Comment Normal (NORMAL) 07/10/23 06:10 RBC Morphology Abnormal (NORMAL) A 07/10/23 06:10 Hypochromasia 1+ A 07/10/23 06:10 Anisocytosis Slight A 07/10/23 06:10 Microcytosis 1+ A 07/10/23 06:10 Sodium 140 mmol/L (136-145) 07/10/23 06:10 Corrected Sodium 143 mmol/L (136-145) 07/10/23 06:10 Potassium 3.8 mmol/L (3.5-5.1) 07/10/23 06:10 Chloride 107 mmol/L (98-107) 07/10/23 06:10 Carbon Dioxide 25.7 mmol/L (21-32) 07/10/23 06:10 BUN 6 mg/dL (7-18) L 07/10/23 06:10 Creatinine 0.43 mg/dL (0.55-1.02) L 07/10/23 06:10 Est GFR (MDRD) Af Amer > 60 (>60) 07/10/23 06:10 Est GFR (MDRD) Non-Af > 60 (>60) 07/10/23 06:10 Glucose 210 mg/dL (65-99) H 07/10/23 06:10 POC Glucose (mg/dL) 216 mg/dL (65-99) H 07/10/23 06:02 Calcium 8.2 mg/dL (8.5-10.1) L 07/10/23 06:10 Corrected Calcium 9.4 mg/dL (8.5-10.1) 07/10/23 06:10 Magnesium 2.0 mg/dL (2.0-2.9) 07/09/23 05:11 Total Bilirubin 0.90 mg/dL (0.2-1.0) 07/10/23 06:10 AST 32 Units/L (15-37) 07/10/23 06:10 ALT 67 Units/L (12-78) 07/10/23 06:10 Alkaline Phosphatase 76 Units/L (46-116) 07/10/23 06:10 Total Protein 6.3 g/dL (6.4-8.2) L 07/10/23 06:10 Albumin 2.5 g/dL (3.4-5.0) L 07/10/23 06:10 Globulin 3.8 g/dL (2.5-4.5) 07/10/23 06:10 Albumin/Globulin Ratio 0.7 Ratio (1.1-2.1) L 07/10/23 06:10 Specimen Type Clean catch urine 07/09/23 01:45 Urine Color Yellow (YELLOW) 07/09/23 01:45 Urine Appearance Clear (CLEAR) 07/09/23 01:45 Urine pH 5.0 (5.0 - 8.0) 07/09/23 01:45 Ur Specific [place] 1.025 (1.000-1.030) 07/09/23 01:45 Urine Protein Negative (NEGATIVE) 07/09/23 01:45 Urine Glucose (UA) 4+ (NEGATIVE) 07/09/23 01:45 Urine Ketones Negative (NEGATIVE) 07/09/23 01:45 Urine Blood 1+ (NEGATIVE) 07/09/23 01:45 Urine Nitrite Negative (NEGATIVE) 07/09/23 01:45 Urine Bilirubin Negative (NEGATIVE) 07/09/23 01:45 Urine Acetone Negative (NEGATIVE) 07/09/23 01:45 Urine Urobilinogen Normal (NORMAL) 07/09/23 01:45 Ur Leukocyte Esterase Negative (NEGATIVE) 07/09/23 01:45 Urine RBC 0-2 /HPF (0-3) 07/09/23 01:45 Urine WBC 0-2 /HPF (0-5) 07/09/23 01:45 Ur Squamous Epith Cells Rare /HPF (NEGATIVE) 07/09/23 01:45 Urine Bacteria Trace /HPF (NEGATIVE) 07/09/23 01:45 Ur Culture Indicated? Yes/culture set up 07/09/23 01:45 Urine Test Negative <10 mIU/mL 07/09/23 01:45 Stl Occult Blood (IFOB) Negative (NEGATIVE) 07/09/23 19:20 Stool for White Cells Negative (NEGATIVE) 07/09/23 19:20 Stl C. diff Tox B Gene Negative (NEGATIVE) 07/09/23 19:20 Stl C. diff [id number] Presumptive negative (NEGATIVE) 07/09/23 19:20 Stool H. pylori Ag Negative (NEGATIVE) 07/09/23 19:20 Acetone, Semi-Quant Negative (NEGATIVE) 07/08/23 18:05 Cryptosporid parvum Ag Negative (NEGATIVE) 07/09/23 19:20 Giardia lamblia Ag Negative (NEGATIVE) 07/09/23 19:20 Plan (1) UTI (urinary tract infection): Status: Acute Qualifiers: Urinary tract infection type: acute cystitis Hematuria presence: without hematuria Qualified Code(s): N30.00 - Acute cystitis without hematuria (2) Diabetes mellitus with hyperglycemia: Status: Acute Qualifiers: Diabetes mellitus type: type 2 Diabetes mellitus intermediate insulin use: without intermediate use Qualified Code(s): E11.65 - Type 2 diabetes mellitus with hyperglycemia (3) Right lower quadrant abdominal pain: Status: Acute (4) Colitis: Status: Acute (5) Hypertension: Status: Chronic Qualifiers: Hypertension type: primary hypertension Qualified Code(s): I10 - Essential (primary) hypertension (6) Dehydration with hyponatremia: Status: Acute (7) Fatty liver: Status: Acute
[2023-07-11 05:59] LABS: BASOPHILS # (AUTO) 0.1 X10^3/uL (0.0-0.1); BASOPHILS % (AUTO) 1.1 % (0.2-1.0); EOSINOPHILS # (AUTO) 0.2 x10^3/uL (0.0-0.2); EOSINOPHILS % (AUTO) 3.6 % (0.9-2.9); HEMATOCRIT 37.1 % (36.0-47.0); HEMOGLOBIN 11.8 g/dL (12.0-16.0); LYMPHOCYTES # (AUTO) 1.5 X10^3/uL (1.3-2.9); LYMPHOCYTES % (AUTO) 22.3 % (21.0-51.0); MEAN CORPUSCULAR HEMOGLOBIN 22.3 pg (27.0-34.0); MEAN CORPUSCULAR HGB CONC 31.8 g/dL (33.0-35.0); MEAN CORPUSCULAR VOLUME 70.1 fL (80.0-100.0); MEAN PLATELET VOLUME 9.7 fL (7.4-11.0); MONOCYTES # (AUTO) 0.4 x10^3/uL (0.3-0.8); MONOCYTES % (AUTO) 6.5 % (0.0-13.0); NEUTROPHILS # (AUTO) 4.3 x10^3/uL (2.2-4.8); NEUTROPHILS % (AUTO) 66.5 % (42.0-75.0); PLATELET COUNT 203 X10^3/uL (150.0-450.0); RED BLOOD COUNT 5.29 X10^6/uL (3.5-5.4); WHITE BLOOD COUNT 6.5 X10^3/uL (3.6-10.0)
[2023-07-11 06:12] LABS: ANISOCYTOSIS SLIGHT; HYPOCHROMASIA 1+; MICROCYTOSIS SLIGHT; PLATELET MORPHOLOGY COMMENT NORMAL (NORMAL)
[2023-07-11 06:20] LABS: ALANINE AMINOTRANSFERASE 63 Units/L (12-78); ALBUMIN 2.7 g/dL (3.4-5.0); ALKALINE PHOSPHATASE 88 Units/L (46-116); ASPARTATE AMINO TRANSFERASE 22 Units/L (15-37); BLOOD UREA NITROGEN 7 mg/dL (7-18); CALCIUM 8.3 mg/dL (8.5-10.1); CARBON DIOXIDE 27.1 mmol/L (21-32); CHLORIDE 107 mmol/L (98-107); COR CA(FOR HYPOALB) 9.3 mg/dL (8.5-10.1); COR NA(FOR HYPERGLY) 144 mmol/L (136-145); CREATININE 0.55 mg/dL (0.55-1.02); GLUCOSE 223 mg/dL (65-99); POTASSIUM 3.8 mmol/L (3.5-5.1); SODIUM 141 mmol/L (136-145); TOTAL PROTEIN 6.4 g/dL (6.4-8.2); eGFR NON BLACK RACES > 60 (>60)
[2023-07-11] MEDS: LANTUS SC SCH (08:41)
[2023-07-11] MEDS: K-DUR TAB 20 MEQ PO SCH (08:41)
--- NOTE | 2023-07-11 15:17 | PCM.PROG ---
Progress Note Progress Note for Day of Date of Exam: 07/11/23 Subjective Subjective: Patient seen at bedside, no acute events overnight. She is feeling better today. She has been tolerating PO intake. She states her abdominal pain has improved. She is currently admitted for hyperglycemia, UTI and colitis. Labs/imaging reviewed -Hg 11.8 K:3.8 Glucose 223 -Urine Cx repeat pending -US abd: fatty liver -Stool Cx (-) campy Plan: Continue hydration, pain control and anti-emetics. Follow pending Cx. Continue IV Cipro. Continue SSI. Add Lantus 10 units AM. Continue full liquids. Replace electrolytes prn. Monitor AM labs and imaging. Past Medical Family Social History Allergies: Allergies No Known Drug Allergies Allergy (Verified 05/19/20 13:34) Vital Signs and I&O's Vital Signs: Vital Signs Temperature 97.1 F Temperature 97.5 F Pulse Rate [Right Brachial] 74 Pulse Rate [Right Brachial] 70 Respiratory Rate 18 Respiratory Rate 18 Blood Pressure [Right Arm] 125/71 Blood Pressure [Right Arm] 117/67 O2 Sat by Pulse Oximetry 97 O2 Sat by Pulse Oximetry 92 Intake and Output: Intake & Output 07/08/23 07/09/23 07/10/23 07/11/23 23:59 23:59 23:59 23:59 Intake Total 220 / 220 4730 / 4730 3874 / 3874 800 / 800 Balance 220 / 220 4730 / 4730 3874 / 3874 800 / 800 Physical Exam Oriented: Normal Eyes: Normal Ear: Normal Nose: Normal Throat: Exudate Respiratory: Normal Cardiovascular: Normal Auscultation: Bowel Sounds: Normal Tenderness: RLQ, Suprapubic and Mild Skin: Decreased Turgur Musculoskeletal: Back:Lumbar Psychiatric: Normal Mood Description: Calm Affect: Normal Speech Pattern: Clear Laboratory and Diagnostics 07/11/23 05:49 07/11/23 05:49 Labs: 07/10/23 12:59 Urine,Clean Catch Urine Culture - Preliminary 07/09/23 19:20 Stool Stool Culture - Preliminary 07/09/23 19:20 Stool - Final 07/09/23 01:45 Urine,Clean Catch Urine Culture - Final Laboratory WBC 6.5 X10^3/uL (3.6-10.0) 07/11/23 05:49 RBC 5.29 X10^6/uL (3.5-5.4) 07/11/23 05:49 Hgb 11.8 g/dL (12.0-16.0) L 07/11/23 05:49 Hct 37.1 % (36.0-47.0) 07/11/23 05:49 MCV 70.1 fL (80.0-100.0) L 07/11/23 05:49 MCH 22.3 pg (27.0-34.0) L 07/11/23 05:49 MCHC 31.8 g/dL (33.0-35.0) L 07/11/23 05:49 RDW 18.0 % (11.6-16.5) H 07/11/23 05:49 Plt Count 203 X10^3/uL (150.0-450.0) 07/11/23 05:49 Plt Count Comment Adequate (ADEQUATE) 07/11/23 05:49 MPV 9.7 fL (7.4-11.0) 07/11/23 05:49 Neut % (Auto) 66.5 % (42.0-75.0) 07/11/23 05:49 Lymph % (Auto) 22.3 % (21.0-51.0) 07/11/23 05:49 [place] % (Auto) 6.5 % (0.0-13.0) 07/11/23 05:49 Eos % (Auto) 3.6 % (0.9-2.9) H 07/11/23 05:49 Baso % (Auto) 1.1 % (0.2-1.0) H 07/11/23 05:49 Neut # (Auto) 4.3 x10^3/uL (2.2-4.8) 07/11/23 05:49 Lymph # (Auto) 1.5 X10^3/uL (1.3-2.9) 07/11/23 05:49 [place] # (Auto) 0.4 x10^3/uL (0.3-0.8) 07/11/23 05:49 Eos # (Auto) 0.2 x10^3/uL (0.0-0.2) 07/11/23 05:49 Baso # (Auto) 0.1 X10^3/uL (0.0-0.1) 07/11/23 05:49 Absolute Nucleated RBC 0.0 /100WBC 07/11/23 05:49 Plt Morphology Comment Normal (NORMAL) 07/11/23 05:49 RBC Morphology Abnormal (NORMAL) A 07/11/23 05:49 Hypochromasia 1+ A 07/11/23 05:49 Anisocytosis Slight A 07/11/23 05:49 Microcytosis Slight A 07/11/23 05:49 Sodium 141 mmol/L (136-145) 07/11/23 05:49 Corrected Sodium 144 mmol/L (136-145) 07/11/23 05:49 Potassium 3.8 mmol/L (3.5-5.1) 07/11/23 05:49 Chloride 107 mmol/L (98-107) 07/11/23 05:49 Carbon Dioxide 27.1 mmol/L (21-32) 07/11/23 05:49 BUN 7 mg/dL (7-18) 07/11/23 05:49 Creatinine 0.55 mg/dL (0.55-1.02) 07/11/23 05:49 Est GFR (MDRD) Af Amer > 60 (>60) 07/11/23 05:49 Est GFR (MDRD) Non-Af > 60 (>60) 07/11/23 05:49 Glucose 223 mg/dL (65-99) H 07/11/23 05:49 POC Glucose (mg/dL) 282 mg/dL (65-99) H 07/11/23 12:02 Calcium 8.3 mg/dL (8.5-10.1) L 07/11/23 05:49 Corrected Calcium 9.3 mg/dL (8.5-10.1) 07/11/23 05:49 Magnesium 2.0 mg/dL (2.0-2.9) 07/09/23 05:11 Total Bilirubin 0.60 mg/dL (0.2-1.0) 07/11/23 05:49 AST 22 Units/L (15-37) 07/11/23 05:49 ALT 63 Units/L (12-78) 07/11/23 05:49 Alkaline Phosphatase 88 Units/L (46-116) 07/11/23 05:49 Total Protein 6.4 g/dL (6.4-8.2) 07/11/23 05:49 Albumin 2.7 g/dL (3.4-5.0) L 07/11/23 05:49 Globulin 3.7 g/dL (2.5-4.5) 07/11/23 05:49 Albumin/Globulin Ratio 0.7 Ratio (1.1-2.1) L 07/11/23 05:49 Specimen Type Clean catch urine 07/09/23 01:45 Urine Color Yellow (YELLOW) 07/09/23 01:45 Urine Appearance Clear (CLEAR) 07/09/23 01:45 Urine pH 5.0 (5.0 - 8.0) 07/09/23 01:45 Ur Specific [place] 1.025 (1.000-1.030) 07/09/23 01:45 Urine Protein Negative (NEGATIVE) 07/09/23 01:45 Urine Glucose (UA) 4+ (NEGATIVE) 07/09/23 01:45 Urine Ketones Negative (NEGATIVE) 07/09/23 01:45 Urine Blood 1+ (NEGATIVE) 07/09/23 01:45 Urine Nitrite Negative (NEGATIVE) 07/09/23 01:45 Urine Bilirubin Negative (NEGATIVE) 07/09/23 01:45 Urine Acetone Negative (NEGATIVE) 07/09/23 01:45 Urine Urobilinogen Normal (NORMAL) 07/09/23 01:45 Ur Leukocyte Esterase Negative (NEGATIVE) 07/09/23 01:45 Urine RBC 0-2 /HPF (0-3) 07/09/23 01:45 Urine WBC 0-2 /HPF (0-5) 07/09/23 01:45 Ur Squamous Epith Cells Rare /HPF (NEGATIVE) 07/09/23 01:45 Urine Bacteria Trace /HPF (NEGATIVE) 07/09/23 01:45 Ur Culture Indicated? Yes/culture set up 07/09/23 01:45 Urine Test Negative <10 mIU/mL 07/09/23 01:45 Stl Occult Blood (IFOB) Negative (NEGATIVE) 07/09/23 19:20 Stool for White Cells Negative (NEGATIVE) 07/09/23 19:20 Stl C. diff Tox B Gene Negative (NEGATIVE) 07/09/23 19:20 Stl C. diff [id number] Presumptive negative (NEGATIVE) 07/09/23 19:20 Stool H. pylori Ag Negative (NEGATIVE) 07/09/23 19:20 Acetone, Semi-Quant Negative (NEGATIVE) 07/08/23 18:05 Cryptosporid parvum Ag Negative (NEGATIVE) 07/09/23 19:20 Giardia lamblia Ag Negative (NEGATIVE) 07/09/23 19:20 Plan (1) UTI (urinary tract infection): Status: Acute Qualifiers: Urinary tract infection type: acute cystitis Hematuria presence: without hematuria Qualified Code(s): N30.00 - Acute cystitis without hematuria (2) Diabetes mellitus with hyperglycemia: Status: Acute Qualifiers: Diabetes mellitus type: type 2 Diabetes mellitus group home insulin use: without group home use Qualified Code(s): E11.65 - Type 2 diabetes mellitus with hyperglycemia (3) Right lower quadrant abdominal pain: Status: Acute (4) Colitis: Status: Acute (5) Hypertension: Status: Chronic Qualifiers: Hypertension type: primary hypertension Qualified Code(s): I10 - Essential (primary) hypertension (6) Dehydration with hyponatremia: Status: Acute (7) Fatty liver: Status: Acute
[2023-07-11 16:08] VITALS: RESP 20
[2023-07-11] MEDS ORDERED: SNACK - Diabetic Appropriate PO SCH (20:00)
[2023-07-12 05:44] LABS: BASOPHILS # (AUTO) 0.1 X10^3/uL (0.0-0.1); BASOPHILS % (AUTO) 0.9 % (0.2-1.0); EOSINOPHILS # (AUTO) 0.3 x10^3/uL (0.0-0.2); EOSINOPHILS % (AUTO) 3.6 % (0.9-2.9); HEMATOCRIT 35.7 % (36.0-47.0); HEMOGLOBIN 11.5 g/dL (12.0-16.0); LYMPHOCYTES % (AUTO) 25.6 % (21.0-51.0); MEAN CORPUSCULAR HEMOGLOBIN 22.5 pg (27.0-34.0); MEAN CORPUSCULAR HGB CONC 32.3 g/dL (33.0-35.0); MEAN CORPUSCULAR VOLUME 69.7 fL (80.0-100.0); MEAN PLATELET VOLUME 9.5 fL (7.4-11.0); MONOCYTES # (AUTO) 0.5 x10^3/uL (0.3-0.8); NEUTROPHILS # (AUTO) 4.8 x10^3/uL (2.2-4.8); NEUTROPHILS % (AUTO) 62.9 % (42.0-75.0); PLATELET COUNT 199 X10^3/uL (150.0-450.0); RED BLOOD COUNT 5.12 X10^6/uL (3.5-5.4); RED CELL DISTRIBUTION WIDTH 17.9 % (11.6-16.5); WHITE BLOOD COUNT 7.7 X10^3/uL (3.6-10.0)
[2023-07-12 05:57] LABS: ALANINE AMINOTRANSFERASE 61 Units/L (12-78); ALBUMIN 2.7 g/dL (3.4-5.0); ALKALINE PHOSPHATASE 87 Units/L (46-116); ASPARTATE AMINO TRANSFERASE 21 Units/L (15-37); BLOOD UREA NITROGEN 5 mg/dL (7-18); CALCIUM 8.5 mg/dL (8.5-10.1); CARBON DIOXIDE 28.5 mmol/L (21-32); CHLORIDE 106 mmol/L (98-107); COR CA(FOR HYPOALB) 9.5 mg/dL (8.5-10.1); COR NA(FOR HYPERGLY) 143 mmol/L (136-145); GLUCOSE 133 mg/dL (65-99); MAGNESIUM 1.6 mg/dL (2.0-2.9); POTASSIUM 3.3 mmol/L (3.5-5.1); SODIUM 142 mmol/L (136-145); TOTAL PROTEIN 6.4 g/dL (6.4-8.2); eGFR NON BLACK RACES > 60 (>60)
[2023-07-12 06:02] LABS: ANISOCYTOSIS SLIGHT; HYPOCHROMASIA 1+; MICROCYTOSIS 1+; PLATELET MORPHOLOGY COMMENT NORMAL (NORMAL)
[2023-07-12] MEDS ORDERED: CONSULT PHARMACY - POTASSIUM & MAGNESIUM XX SCH (07:00)
[2023-07-12 07:49] VITALS: BP 116/55; PULSE 75; TEMP 97.3; O2SAT 95
[2023-07-12] MEDS: MAGNESIUM SULFATE 1 GRAM/100 mL PREMIX 1 G/100 ML BAG IV SCH (07:58)
[2023-07-12] MEDS: CONSULT PHARMACY - POTASSIUM & MAGNESIUM XX SCH (07:58)
[2023-07-12] MEDS: [UNRECOGNIZED DRUG - OTHER] IV ONE (08:39)
[2023-07-12] MEDS: MAGNESIUM SULFATE IV ONE (08:39)
[2023-07-12] MEDS: POTASSIUM CHLORIDE IV ONE (08:39)
[2023-07-12] MEDS ORDERED: K-RIDER 10 MEQ/100 ML WATER 10 MEQ/100 ML BAG IV SCH (09:00)
--- NOTE | 2023-07-13 16:41 | PCM.DCPLAN ---
DISCHARGE SUMMARY Admission Date Date of Admission: 07/08/23 Discharge Date Discharge Date: 07/12/23 Admission Diagnoses (1) UTI (urinary tract infection): Status: Acute (2) Diabetes mellitus with hyperglycemia: Status: Acute (3) Right lower quadrant abdominal pain: Status: Acute (4) Colitis: Status: Acute (5) Hypertension: Status: Chronic (6) Dehydration with hyponatremia: Status: Acute (7) Fatty liver: Status: Acute Discharge Diagnoses Discharge Diagnosis: resolved dehydration with hyponatremia, resolved UTI, same as admission Discharge Medications Discharge Medications: Home Medication List tirzepatide 2.5 mg/0.5 mL subcutaneous pen injector (Mounjaro) 2.5 mg subcut WEEKLY 07/08/23 [History] ciprofloxacin HCl 500 mg tablet (Cipro) 500 mg PO BID 7 days #14 tabs 07/12/23 [Rx] Prescriptions: ciprofloxacin HCl [Cipro] [facility] Vital Signs: Vital Signs Temperature 97.3 F Temperature 97.7 F Temperature 97.7 F Pulse Rate [Right Brachial] 75 Pulse Rate [Right Brachial] 81 Pulse Rate [Right Brachial] 81 Respiratory Rate 20 Respiratory Rate 20 Respiratory Rate 20 Blood Pressure [Right Arm] 116/55 Blood Pressure [Right Arm] 135/64 Blood Pressure [Right Arm] 135/64 O2 Sat by Pulse Oximetry 95 O2 Sat by Pulse Oximetry 98 O2 Sat by Pulse Oximetry 98 Latest Lab Results: Laboratory Last Values WBC 7.7 X10^3/uL (3.6-10.0) 07/12/23 05:23 RBC 5.12 X10^6/uL (3.5-5.4) 07/12/23 05:23 Hgb 11.5 g/dL (12.0-16.0) L 07/12/23 05:23 Hct 35.7 % (36.0-47.0) L 07/12/23 05:23 MCV 69.7 fL (80.0-100.0) L 07/12/23 05:23 MCH 22.5 pg (27.0-34.0) L 07/12/23 05:23 MCHC 32.3 g/dL (33.0-35.0) L 07/12/23 05:23 RDW 17.9 % (11.6-16.5) H 07/12/23 05:23 Plt Count 199 X10^3/uL (150.0-450.0) 07/12/23 05:23 Plt Count Comment Adequate (ADEQUATE) 07/12/23 05:23 MPV 9.5 fL (7.4-11.0) 07/12/23 05:23 Neut % (Auto) 62.9 % (42.0-75.0) 07/12/23 05:23 Lymph % (Auto) 25.6 % (21.0-51.0) 07/12/23 05:23 Rankin % (Auto) 7.0 % (0.0-13.0) 07/12/23 05:23 Eos % (Auto) 3.6 % (0.9-2.9) H 07/12/23 05:23 Baso % (Auto) 0.9 % (0.2-1.0) 07/12/23 05:23 Neut # (Auto) 4.8 x10^3/uL (2.2-4.8) 07/12/23 05:23 Lymph # (Auto) 2.0 X10^3/uL (1.3-2.9) 07/12/23 05:23 Rankin # (Auto) 0.5 x10^3/uL (0.3-0.8) 07/12/23 05:23 Eos # (Auto) 0.3 x10^3/uL (0.0-0.2) H 07/12/23 05:23 Baso # (Auto) 0.1 X10^3/uL (0.0-0.1) 07/12/23 05:23 Absolute Nucleated RBC 0.0 /100WBC 07/12/23 05:23 Plt Morphology Comment Normal (NORMAL) 07/12/23 05:23 RBC Morphology Abnormal (NORMAL) A 07/12/23 05:23 Hypochromasia 1+ A 07/12/23 05:23 Anisocytosis Slight A 07/12/23 05:23 Microcytosis 1+ A 07/12/23 05:23 Sodium 142 mmol/L (136-145) 07/12/23 05:23 Corrected Sodium 143 mmol/L (136-145) 07/12/23 05:23 Potassium 3.3 mmol/L (3.5-5.1) L 07/12/23 05:23 Chloride 106 mmol/L (98-107) 07/12/23 05:23 Carbon Dioxide 28.5 mmol/L (21-32) 07/12/23 05:23 BUN 5 mg/dL (7-18) L 07/12/23 05:23 Creatinine 0.40 mg/dL (0.55-1.02) L 07/12/23 05:23 Est GFR (MDRD) Af Amer > 60 (>60) 07/12/23 05:23 Est GFR (MDRD) Non-Af > 60 (>60) 07/12/23 05:23 Glucose 133 mg/dL (65-99) H 07/12/23 05:23 POC Glucose (mg/dL) 147 mg/dL (65-99) H 07/12/23 05:27 Calcium 8.5 mg/dL (8.5-10.1) 07/12/23 05:23 Corrected Calcium 9.5 mg/dL (8.5-10.1) 07/12/23 05:23 Magnesium 1.6 mg/dL (2.0-2.9) L 07/12/23 05:23 Total Bilirubin 0.70 mg/dL (0.2-1.0) 07/12/23 05:23 AST 21 Units/L (15-37) 07/12/23 05:23 ALT 61 Units/L (12-78) 07/12/23 05:23 Alkaline Phosphatase 87 Units/L (46-116) 07/12/23 05:23 Total Protein 6.4 g/dL (6.4-8.2) 07/12/23 05:23 Albumin 2.7 g/dL (3.4-5.0) L 07/12/23 05:23 Globulin 3.7 g/dL (2.5-4.5) 07/12/23 05:23 Albumin/Globulin Ratio 0.7 Ratio (1.1-2.1) L 07/12/23 05:23 Specimen Type Clean catch urine 07/09/23 01:45 Urine Color Yellow (YELLOW) 07/09/23 01:45 Urine Appearance Clear (CLEAR) 07/09/23 01:45 Urine pH 5.0 (5.0 - 8.0) 07/09/23 01:45 Ur Specific [place] 1.025 (1.000-1.030) 07/09/23 01:45 Urine Protein Negative (NEGATIVE) 07/09/23 01:45 Urine Glucose (UA) 4+ (NEGATIVE) 07/09/23 01:45 Urine Ketones Negative (NEGATIVE) 07/09/23 01:45 Urine Blood 1+ (NEGATIVE) 07/09/23 01:45 Urine Nitrite Negative (NEGATIVE) 07/09/23 01:45 Urine Bilirubin Negative (NEGATIVE) 07/09/23 01:45 Urine Acetone Negative (NEGATIVE) 07/09/23 01:45 Urine Urobilinogen Normal (NORMAL) 07/09/23 01:45 Ur Leukocyte Esterase Negative (NEGATIVE) 07/09/23 01:45 Urine RBC 0-2 /HPF (0-3) 07/09/23 01:45 Urine WBC 0-2 /HPF (0-5) 07/09/23 01:45 Ur Squamous Epith Cells Rare /HPF (NEGATIVE) 07/09/23 01:45 Urine Bacteria Trace /HPF (NEGATIVE) 07/09/23 01:45 Ur Culture Indicated? Yes/culture set up 07/09/23 01:45 Urine Test Negative <10 mIU/mL 07/09/23 01:45 Stl Occult Blood (IFOB) Negative (NEGATIVE) 07/09/23 19:20 Stool for White Cells Negative (NEGATIVE) 07/09/23 19:20 Stl C. diff Tox B Gene Negative (NEGATIVE) 07/09/23 19:20 Stl C. diff [id number] Presumptive negative (NEGATIVE) 07/09/23 19:20 Stool H. pylori Ag Negative (NEGATIVE) 07/09/23 19:20 Acetone, Semi-Quant Negative (NEGATIVE) 07/08/23 18:05 Cryptosporid parvum Ag Negative (NEGATIVE) 07/09/23 19:20 Giardia lamblia Ag Negative (NEGATIVE) 07/09/23 19:20 Hospital Course: Patient is a 22-year-old female patient who was a direct admit from Dr. Hair's office on 07/08/23 with glucose 450, RLQ pain, and dizziness. In office, patient a1c was found to be 11.3- increase from previous reading 3 months ago at 6.0. Upon admission, we started the patient on IV hydration, SSI coverage. We obtained a serum and urine acetone, which were negative. Abdominal series was normal. Her magnesium was low requiring electrolyte replacement. We started the patient on IV abx and held metformin with plans for CT abdomen&pelvis with contrast, however insurance denied coverage. We obtained an abdominal ultrasound that showed likely fatty infiltration of the liver. Stool and urine cultures were negative. Morning labs: hgb 11.5, wbc 7.7, bun 5/creatinine 0.40. AM vitals:116/55-75-20-97.3-95%. Patient states that she is feeling much improved, so we will allow her to discharge home on po abx. Please see discharge plan for list of discharge medications and modifications that we made, electronic medical record for diagnostic tests and labs. She will need to follow up with her primary care provider. She has an appointment scheduled for 07/21/23 at 1:45PM. The patient was instructed to return to the ER if condition changed or worsened unexpectedly.
== END 2023-07-12 12:20 | disposition home or self-care (01) ==
LOC: MED/SURG
PROVIDERS: ADMIT Internal Medicine; ATTEND Internal Medicine